=== PATIENT | female | born 1975 | race Caucasian/White ===

== ENCOUNTER 2018-06-09 13:11 | Emergency (ER) | payer MEDICAID, SELFPAY ==
[2018-06-09 13:16] VITALS: BP 120/62; PULSE 70; RESP 14; TEMP 37; O2SAT 99
[2018-06-09] MEDS: Amoxicillin 875/Clav. 125 TAB PO (14:04)
--- NOTE | 2018-06-09 14:21 | ED.GENADUL ---
Disposition Clinical Impression: Suppurative otitis media Disposition: HOME Condition: Stable Instructions: Otitis Media (ED) Additional Instructions: Return immediately for any high fevers, significant worsening of symptoms, or further concerns you may have. Otherwise take your antibiotics as prescribed and follow-up with your primary care provider if not improving over the next week. He may continue to take [id number] pain medication and for your nasal congestion it is recommended that you use [id number] Flonase and Sudafed. Prescriptions: Amoxicillin/Potassium Clav [Augmentin 875-125 Tablet] 1 each PO Q12H #14 tablet Referrals: [facility] [Provider Group] - 1 week (Follow-up with your primary care provider for reassessment in the next week if not improving.) Forms: Work Release Medical Decision Making - Medical Decision Making Patient presenting the emergency department for right ear pain and headache. Physical exam shows findings consistent with supportive otitis media otherwise very mild mastoid tenderness, normal external ear exam, normal oropharynx exam. Patient does have mild lymphadenopathy noted on the right anterior cervical lymph nodes otherwise no meningitis, peritonsillar or retropharyngeal abscess or findings noted. Given this patient was placed upon Augmentin due to stating significant headache and discomfort with this. Patient encouraged to return for new or worsening symptoms otherwise to follow-up with primary care in 1 week if not improving. After discussion of diagnosis and plan of care with patient patient agreed and stated no further needs, questions, or concerns at this time. History of Present Illness - General Chief complaint: EarProblem Stated complaint: EAR ACHE Time Seen by Provider: 06/09/18 13:27 Source: patient, RN notes reviewed Mode of arrival: ambulatory Limitations: no limitations - History of Present Illness Initial comments: Patient reports for the past 3 days she has had feeling of being off, mild headache, and then developing into right ear pain. She states pain is been significant and severe and that she feels some popping and pressure in her middle ear. Patient denies any fever but states that overall she does not feel well. Patient does state that over the past couple weeks she has suffered from a sinus cold with persistent nasal congestion. Onset/Timin -: days(s) Location: right (ear) Severity scale (1-10): 7 Quality: aching, other (Pressure) Consistency: constant Improves with: none Worsens with: none Associated Symptoms: denies other symptoms Treatments Prior to Arrival: NSAID - Related Data Ibuprofen [Ibuprofen Ib] 200 - 600 mg PO PRN PRN 09/24/17 Amoxicillin/Potassium Clav [Augmentin 875-125 Tablet] 1 each PO Q12H #14 tablet 06/09/18 Allergies Allergy/AdvReac Type Severity Reaction Status Date / Time codeine Allergy Unknown high fever Unverified 06/09/18 13:24 Review of Systems Constitutional: denies: chills, fever ENT: ear pain, throat pain, congestion. denies: dental pain Respiratory: denies: cough, shortness of breath Skin: denies: rash Neurological: headache Comment: All other systems reviewed and negative Past Medical History - Past Medical History Medical history: no medical history Surgical history: non-contributory, bilateral tubal ligation - Social History Smoking status: current everyday smoker Alcohol use: none Drug use: none General Exam - General Limitations: no limitations General appearance: alert, in no apparent distress - Head Head exam: Present: atraumatic, normocephalic, normal inspection - Eye Eye exam: Present: normal apperance - ENT ENT exam: Present: normal orophraynx, mucous membranes moist, other. Absent: TM's normal bilaterally (Right TM has purulent fluid seen with some loss of landmarks) - Expanded ENT Exam No standard instances Ear exam: Present: normal external inspection Mouth exam: Present: tongue normal. Absent: drooling, trismus, muffled voice, tongue elevation Throat exam: normal inspection. negative: tonsillar erythema, tonsillomegaly, tonsillar exudate, R peritonsillar mass, L peritonsillar mass - Neck Neck exam: Present: tenderness, full ROM, lymphadenopathy (Right anterior cervical). Absent: meningismus - Respiratory Respiratory exam: Present: normal lung sounds bilaterally. Absent: respiratory distress, wheezes, rales, rhonchi, stridor - Cardiovascular Cardiovascular Exam: Present: regular rate, normal rhythm, normal heart sounds - Neurological Exam Neurological exam: Present: alert, oriented X3, normal gait. Absent: altered - Skin Skin exam: Present: warm, dry, normal color Course Vital Signs - 24 hr 06/09/18 13:16 Temperature 37.0 C Pulse 70 Respiratory 14 Rate Blood Pressure 120/62 Pulse Oximetry 99
--- NOTE | 2018-06-09 14:24 | ED.GENADUL_ITS ---
Disposition Clinical Impression: Suppurative otitis media Disposition: HOME Condition: Stable Instructions: Otitis Media (ED) Additional Instructions: Return immediately for any high fevers, significant worsening of symptoms, or further concerns you may have. Otherwise take your antibiotics as prescribed and follow-up with your primary care provider if not improving over the next week. He may continue to take [id number] pain medication and for your nasal congestion it is recommended that you use [id number] Flonase and Sudafed. Prescriptions: Amoxicillin/Potassium Clav [Augmentin 875-125 Tablet] 1 each PO Q12H #14 tablet Referrals: [facility] [Provider Group] - 1 week (Follow-up with your primary care provider for reassessment in the next week if not improving.) Forms: Work Release Medical Decision Making - Medical Decision Making Patient presenting the emergency department for right ear pain and headache. Physical exam shows findings consistent with supportive otitis media otherwise very mild mastoid tenderness, normal external ear exam, normal oropharynx exam. Patient does have mild lymphadenopathy noted on the right anterior cervical lymph nodes otherwise no meningitis, peritonsillar or retropharyngeal abscess or findings noted. Given this patient was placed upon Augmentin due to stating significant headache and discomfort with this. Patient encouraged to return for new or worsening symptoms otherwise to follow-up with primary care in 1 week if not improving. After discussion of diagnosis and plan of care with patient patient agreed and stated no further needs, questions, or concerns at this time. History of Present Illness - General Chief complaint: EarProblem Stated complaint: EAR ACHE Time Seen by Provider: 06/09/18 13:27 Source: patient, RN notes reviewed Mode of arrival: ambulatory Limitations: no limitations - History of Present Illness Initial comments: Patient reports for the past 3 days she has had feeling of being off, mild headache, and then developing into right ear pain. She states pain is been significant and severe and that she feels some popping and pressure in her middle ear. Patient denies any fever but states that overall she does not feel well. Patient does state that over the past couple weeks she has suffered from a sinus cold with persistent nasal congestion. Onset/Timin -: days(s) Location: right (ear) Severity scale (1-10): 7 Quality: aching, other (Pressure) Consistency: constant Improves with: none Worsens with: none Associated Symptoms: denies other symptoms Treatments Prior to Arrival: NSAID - Related Data Ibuprofen [Ibuprofen Ib] 200 - 600 mg PO PRN PRN 09/24/17 Amoxicillin/Potassium Clav [Augmentin 875-125 Tablet] 1 each PO Q12H #14 tablet 06/09/18 Allergies Allergy/AdvReac Type Severity Reaction Status Date / Time codeine Allergy Unknown high fever Unverified 06/09/18 13:24 Review of Systems Constitutional: denies: chills, fever ENT: ear pain, throat pain, congestion. denies: dental pain Respiratory: denies: cough, shortness of breath Skin: denies: rash Neurological: headache Comment: All other systems reviewed and negative Past Medical History - Past Medical History Medical history: no medical history Surgical history: non-contributory, bilateral tubal ligation - Social History Smoking status: current everyday smoker Alcohol use: none Drug use: none General Exam - General Limitations: no limitations General appearance: alert, in no apparent distress - Head Head exam: Present: atraumatic, normocephalic, normal inspection - Eye Eye exam: Present: normal apperance - ENT ENT exam: Present: normal orophraynx, mucous membranes moist, other. Absent: TM 's normal bilaterally (Right TM has purulent fluid seen with some loss of landmarks) - Expanded ENT Exam No standard instances Ear exam: Present: normal external inspection Mouth exam: Present: tongue normal. Absent: drooling, trismus, muffled voice, tongue elevation Throat exam: normal inspection. negative: tonsillar erythema, tonsillomegaly, tonsillar exudate, R peritonsillar mass, L peritonsillar mass - Neck Neck exam: Present: tenderness, full ROM, lymphadenopathy (Right anterior cervical). Absent: meningismus - Respiratory Respiratory exam: Present: normal lung sounds bilaterally. Absent: respiratory distress, wheezes, rales, rhonchi, stridor - Cardiovascular Cardiovascular Exam: Present: regular rate, normal rhythm, normal heart sounds - Neurological Exam Neurological exam: Present: alert, oriented X3, normal gait. Absent: altered - Skin Skin exam: Present: warm, dry, normal color Course Vital Signs - 24 hr 06/09/18 13:16 Temperature 37.0 C Pulse 70 Respiratory 14 Rate Blood Pressure 120/62 Pulse Oximetry 99
== END 2018-06-09 14:35 | disposition home or self-care (01) ==
PROVIDERS: Emergency Provider Student in an Organized Health Care Education/Training Program; PCP Nurse Practitioner
DX: H66.001 Acute suppurative otitis media without spontaneous rupture of ear drum, right ear (principal); R51 Headache; R59.1 Generalized enlarged lymph nodes
CPT/HCPCS: 99283

== ENCOUNTER 2018-07-06 13:13 | Outpatient (REF) | payer MEDICAID, SELFPAY ==
[2018-07-06 13:58] LABS: Hemoglobin A1C 5.3 % (4.5-6.2)
[2018-07-06 14:02] LABS: Cholesterol 171 mg/dL (50-200); HDL Cholesterol 78 mg/dL (40-60); LDL CHOLESTEROL 87 mg/dL (<100); TSH (W/Ref FT4) 1.33 uIU/mL (0.358-3.74); Triglyceride 35 mg/dL (30-150)
== END 2018-07-06 13:14 ==
LOC: NCHCN 13:13
PROVIDERS: PCP Nurse Practitioner; Visit Provider Nurse Practitioner
DX: Z13.29 Encounter for screening for other suspected endocrine disorder (principal); Z13.1 Encounter for screening for diabetes mellitus; Z13.89 Encounter for screening for other disorder
CPT/HCPCS: 80061; 83721; 83036; 84443

== ENCOUNTER 2019-02-22 10:15 | Outpatient (CLI) | payer OTHER, SELFPAY ==
--- NOTE | 2019-02-22 10:01 | DI.RAD_ITS ---
SYMPTOMS/DIAGNOSIS: RT SHOULDER PAIN RIGHT SHOULDER: Two views were obtained. There is hypertrophic change at the acromioclavicular joint. No other significant bony or soft tissue abnormality seen.
== END 2019-02-22 10:35 ==
PROVIDERS: PCP Nurse Practitioner; Visit Provider Physician Assistant
DX: M25.511 Pain in right shoulder (principal)
CPT/HCPCS: 73030

== ENCOUNTER 2019-04-05 08:47 | Emergency (ER) | payer SELFPAY ==
[2019-04-05 08:49] VITALS: BP 129/70; PULSE 71; RESP 18; TEMP 36.5; O2SAT 100
--- NOTE | 2019-04-05 08:49 | W.ED.GENAD ---
Discharge Plan Disposition Patient Disposition: HOME Discharge Details Chief Complaint: DentalOral Clinical Impression: Dental infection Primary Care Provider: Nicole Robertson ED Provider: Tiesha Tolliver Home Meds and New Rx's Prescriptions: New penicillin V potassium 500 mg tablet 500 mg PO QID Qty: 28 RF: 0 Continued ibuprofen 800 mg tablet 800 mg PO TID RF: 0 acetaminophen [Tylenol Extra Strength] 500 mg tablet 1,000 mg PO Q6H PRNRF: 0 Discharge Instructions Instructions: Dental Abscess (ED) Additional Instructions: Encourage hydration. Tylenol and ibuprofen as needed for discomfort. You may use Orajel to help with localized discomfort. Please take penicillin as prescribed. Even if symptoms improve, please take the entire course. You will need definitive care with a dentist, without this ear infection will recur. Please contact local dentist to set up follow-up appointment, list of local dentist is attached. If you develop increased swelling, fever/chills or other new/worsening symptoms please seek care urgently once again. Referrals: Nicole Robertson [Primary Care Provider] - Medical Decision Making Patient is a 43-year-old female presents today with chief complaint of right upper dental pain. She reports that she first noticed this yesterday. Has a fractured tooth in this area, unclear as to when she fractured this. Patient has pain along the buccal and lingual side of his tooth with no signs of infection. Patient has pain radiating up into the right maxillary sinus. Patient appears nontoxic, vital signs within normal limits. No lymphadenopathy. Concern for infection secondary to this broken tooth. Patient will be placed on penicillin. Advised Tylenol and/or ibuprofen as needed for discomfort. Advised she may try topical options to help with pain. Advised will need definitive care with a dentist, list of local dental care providers was given. We discussed new/worsening symptoms when to seek care urgently once again. All the questions and concerns were addressed and she is in agreement this plan. HPI General Mode of arrival: ambulatory. Date/Time Provider Initiated Documentation: 04/05/19 08:48. Limitations to Documentation: no limitations. Information obtained by: patient and RN notes reviewed. History of Present Illness 43 year old F presents to the emergency department with the chief complaint of right upper dental pain, described as severe, with intensity rated at 9. Quality is described as burning, and is localized to the face and mouth. Patient reports no radiation. Patient started experiencing this day(s) (1) and it has been constant. No relieving factors improve symptom(s), Eating worsens symptoms . Patient notes no other symptoms.; denies fever/chills, headaches, loss of appetite, nausea/vomiting, rash and shortness of breath. Patient did receive the following treatments prior to arrival, NSAID Related Data Home Medications Medication Instructions Recorded Confirmed acetaminophen 500 mg tablet 1,000 mg PO Q6H PRN tab 02/22/19 04/05/19 ibuprofen 800 mg tablet 800 mg PO TID 02/22/19 04/05/19 penicillin V potassium 500 mg PO QID #28 tab 04/05/19 Previous Rx's Medication Instructions Recorded penicillin V potassium 500 mg PO QID #28 tab 04/05/19 Allergies Allergy/AdvReac Type Severity Reaction Status Date / Time codeine Allergy Unknown high fever Unverified 03/22/19 10:11 Review of Systems Constitutional Reports as per HPI, Denies chills, Denies fatigue, Denies fever(s), Denies headache(s) and Denies poor appetite Eyes Denies change in vision and Denies irritation ENT Reports as per HPI, Reports dental pain, Denies dysphagia, Denies dizziness, Denies dry mouth, Denies ear discharge, Denies otalgia, Reports facial pain, Denies headache(s), Denies hoarseness, Denies lip swelling, Denies nasal congestion, Denies odynophagia and Denies sore throat Cardiovascular Reports as per HPI and Denies chest pain Respiratory Reports as per HPI and Denies cough Gastrointestinal Reports as per HPI, Denies dysphagia, Denies nausea, Denies odynophagia and Denies vomiting Integumentary/Breasts Reports as per HPI, Denies erythema, Denies rash and Denies skin pain Neurologic Reports as per HPI, Denies dizziness and Denies headache(s) Endocrine Denies fatigue Allergic/Immunologic Denies lip swelling [facility] Medical History Back pain (Acute) Knee cartilage, torn, right (Acute) Surgical History Hx of elbow surgery (Acute) Social History (Reviewed 04/05/19 @ 09:09 by NOLAN Bar Smoking/Tobacco Use Status: Current every day Tobacco: How many years used: 30 Quit status: has quit before Drug use: Never Household members: spouse and family Housing: apartment Number of Children: 6 Education Level: high school current occupation: [employer] Seatbelt use: always Do you feel safe in your relationship?: Yes Exam Const General: cooperative, healthy appearing, comfortable, no acute distress, well developed and well groomed Nutritional Appearance: average body habitus and well nourished Orientation: alert and awake [facility] Head: normal to inspection, normocephalic and atraumatic Ears: hearing grossly normal bilaterally, external ears normal and TM's normal bilaterally General nose exam: external nose normal and nares normal Face and sinus: normal facial exam, sinuses nontender and face symmetric Mouth: oral mucosae normal, lip normal, tongue normal, moist mucous membranes abnormal (patient appears dry), no muffled voice, no trismus and No restricted motion Teeth and gingiva: poor dentition (fractured #4 tooth, swelling along buccal and lingual side) and other (no findings to suggest abscess) Throat: posterior oropharynx normal, tonsils normal and uvula midline Eyes General: appearance normal, both eyes and all related structures Neck Neck: normal visual inspection, full ROM, no lymphadenopathy, supple and no anterior neck swelling Resp Effort & Inspection: normal respiratory effort, able to speak in complete sentences and no respiratory distress Auscultation: clear to auscultation bilaterally, no rales, no rhonchi and no wheezes Cardio Rate: regular rate Rhythm: regular rhythm Heart Sounds: S1 normal and S2 normal Skin General skin exam: no rashes or lesions noted Trauma: no lacerations or abrasions Neuro General: alert and awake Cognition: normal cognition Speech: speech normal Gait: normal gait Psych Appearance: grossly normal and well kempt Mental Status: mental status grossly normal Speech and Movement: speech and movement normal
--- NOTE | 2019-04-05 09:12 | ED.GENADUL_ITS ---
Discharge Plan Disposition Patient Disposition: HOME Discharge Details Chief Complaint: DentalOral Clinical Impression: Dental infection Primary Care Provider: Nicole Robertson ED Provider: Tiesha Tolliver Home Meds and New Rx's Prescriptions: New penicillin V potassium 500 mg tablet 500 mg PO QID Qty: 28 RF: 0 Continued ibuprofen 800 mg tablet 800 mg PO TID RF: 0 acetaminophen [Tylenol Extra Strength] 500 mg tablet 1,000 mg PO Q6H PRNRF: 0 Discharge Instructions Instructions: Dental Abscess (ED) Additional Instructions: Encourage hydration. Tylenol and ibuprofen as needed for discomfort. You may use Orajel to help with localized discomfort. Please take penicillin as pres cribed. Even if symptoms improve, please take the entire course. You will need definitive care with a dentist, without this ear infection will recur. Please contact local dentist to set up follow-up appointment, list of local dentist is attached. If you develop increased swelling, fever/chills or other new/worsening symptoms please seek care urgently once again. Referrals: Nicole Robertson [Primary Care Provider] - Medical Decision Making Patient is a 43-year-old female presents today with chief complaint of right upper dental pain. She reports that she first noticed this yesterday. Has a fractured tooth in this area, unclear as to when she fractured this. Patient has pain along the buccal and lingual side of his tooth with no signs of infection. Patient has pain radiating up into the right maxillary sinus. Patient appears nontoxic, vital signs within normal limits. No lymphadenopathy. Concern for infection secondary to this broken tooth. Patient will be placed on penicillin. Advised Tylenol and/or ibuprofen as needed for discomfort. Advised she may try topical options to help with pain. Advised will need definitive care with a dentist, list of local dental care providers was given. We discussed new/worsening symptoms when to seek care urgently once again. All the questions and concerns were addressed and she is in agreement this plan. HPI General Mode of arrival: ambulatory . Date/Time Provider Initiated Documentation: 04/05/19 08:48 . Limitations to Documentation: no limitations . Information obtained by: patient and RN notes reviewed . History of Present Illness 43 year old F presents to the emergency department with the chief complaint of right upper dental pain, described as severe, with intensity rated at 9. Quality is described as burning, and is localized to the face and mouth. Patient reports no radiation. Patient started experiencing this day(s) (1) and it has been constant. No relieving factors improve symptom(s), Eating worsens symptoms . Patient notes no other symptoms.; denies fever/chills, headaches, loss of appetite, nausea/vomiting, rash and shortness of breath. Patient did receive the following treatments prior to arrival, NSAID Related Data Home Medications Medication Instructions Recorded Confirmed acetaminophen 500 mg tablet 1,000 mg PO Q6H PRN tab 02/22/19 04/05/19 ibuprofen 800 mg tablet 800 mg PO TID 02/22/19 04/05/19 penicillin V potassium 500 mg PO QID #28 tab 04/05/19 Previous Rx's Medication Instructions Recorded penicillin V potassium 500 mg PO QID #28 tab 04/05/19 Allergies Allergy/AdvReac Type Severity Reaction Status Date / Time codeine Allergy Unknown high fever Unverified 03/22/19 10:11 Review of Systems Constitutional Reports as per HPI, Denies chills, Denies fatigue, Denies fever(s), Denies headache(s) and Denies poor appetite Eyes Denies change in vision and Denies irritation ENT Reports as per HPI, Reports dental pain, Denies dysphagia, Denies dizziness, Denies dry mouth, Denies ear discharge, Denies otalgia, Reports facial pain, Denies headache(s), Denies hoarseness, Denies lip swelling, Denies nasal congestion, Denies odynophagia and Denies sore throat Cardiovascular Reports as per HPI and Denies chest pain Respiratory Reports as per HPI and Denies cough Gastrointestinal Reports as per HPI, Denies dysphagia, Denies nausea, Denies odynophagia and Denies vomiting Integumentary/Breasts Reports as per HPI, Denies erythema, Denies rash and Denies skin pain Neurologic Reports as per HPI, Denies dizziness and Denies headache(s) Endocrine Denies fatigue Allergic/Immunologic Denies lip swelling [facility] Medical History Back pain (Acute) Knee cartilage, torn, right (Acute) Surgical History Hx of elbow surgery (Acute) Social History Smoking/Tobacco Use Status: Current every day Tobacco: How many years used: 30 Quit status: has quit before Drug use: Never Household members: spouse and family Housing: apartment Number of Children: 6 Education Level: high school current occupation: [employer] Seatbelt use: always Do you feel safe in your relationship?: Yes Exam Const General: cooperative, healthy appearing, comfortable, no acute distress, well developed and well groomed Nutritional Appearance: average body habitus and well nourished Orientation: alert and awake [facility] Head: normal to inspection, normocephalic and atraumatic Ears: hearing grossly normal bilaterally, external ears normal and TM's normal bilaterally General nose exam: external nose normal and nares normal Face and sinus: normal facial exam, sinuses nontender and face symmetric Mouth: oral mucosae normal, lip normal, tongue normal, moist mucous membranes abnormal (patient appears dry), no muffled voice, no trismus and No restricted motion Teeth and gingiva: poor dentition (fractured #4 tooth, swelling along buccal and lingual side) and other (no findings to suggest abscess) Throat: posterior oropharynx normal, tonsils normal and uvula midline Eyes General: appearance normal, both eyes and all related structures Neck Neck: normal visual inspection, full ROM, no lymphadenopathy, supple and no anterior neck swelling Resp Effort & Inspection: normal respiratory effort, able to speak in complete sentences and no respiratory distress Auscultation: clear to auscultation bilaterally, no rales, no rhonchi and no wheezes Cardio Rate: regular rate Rhythm: regular rhythm Heart Sounds: S1 normal and S2 normal Skin General skin exam: no rashes or lesions noted Trauma: no lacerations or abrasions Neuro General: alert and awake Cognition: normal cognition Speech: speech normal Gait: normal gait Psych Appearance: grossly normal and well kempt Mental Status: mental status grossly normal Speech and Movement: speech and movement normal
[2019-04-05 09:36] VITALS: BP 129/70; PULSE 71; RESP 18; TEMP 36.5; O2SAT 100
== END 2019-04-05 09:44 | disposition home or self-care (01) ==
PROVIDERS: Emergency Provider Physician Assistant; PCP Nurse Practitioner
DX: K04.7 Periapical abscess without sinus (principal); K08.89 Other specified disorders of teeth and supporting structures
CPT/HCPCS: 64400; 99283

== ENCOUNTER 2019-04-05 20:55 | Emergency (ER) | payer SELFPAY ==
[2019-04-05 20:58] VITALS: BP 132/72; PULSE 110; RESP 18; TEMP 37.2; O2SAT 100
--- NOTE | 2019-04-05 21:09 | W.ED.GENAD ---
Discharge Plan Disposition Patient Disposition: HOME Condition: Good Discharge Details Chief Complaint: DentalOral Clinical Impression: Dental abscess Primary Care Provider: Nicole Robertson ED Provider: Curt Felipe Home Meds and New Rx's Prescriptions: New hydrocodone-acetaminophen [[place]] 5-325 mg tablet 1 tab PO Q6H Qty: 6 RF: 0 No Action ibuprofen 800 mg tablet 800 mg PO TID RF: 0 acetaminophen [Tylenol Extra Strength] 500 mg tablet 1,000 mg PO Q6H PRNRF: 0 penicillin V potassium 500 mg tablet 500 mg PO QID Qty: 28 RF: 0 Discharge Instructions Instructions: Dental Abscess (ED) Additional Instructions: Please continue to take your penicillin as directed, as well as 800 mg of ibuprofen 3-4 times per day. You can continue to take the Tylenol 1000 mg every 6 hours, however if you are taking a [place], only take 500 mg of the Tylenol as the [place] has some Tylenol in it. Please follow-up here in the next 24 to 48 hours for reassessment to make sure your swelling has improved. If you notice any worsening of your symptoms, or any new symptoms such as vomiting, diarrhea, fever, chills, shortness of breath, chest pain, numbness, weakness, or fainting , please return immediately to the emergency department for reevaluation. Please follow up with your primary care provider as soon as possible for reassessment and reevaluation. As always, it was a pleasure participating in your medical care today. Referrals: Nicole Robertson [Primary Care Provider] - Medical Decision Making This is a pleasant 43-year-old female with a history of dental caries, who presents today for right upper dental pain. Earlier this morning she was seen and assessed, she was given a dental block, and penicillin. She has been taking this as directed. Unfortunately the pain has continued, and she also demonstrates some new minimal swelling in the right upper dental region. Bedside ultrasound confirms a small amount of fluid in the periapical space. I suspect this is causing mild swelling. No evidence of fever, or hypotension. We will hold off on doing a second dental block at this time, we will I&D the area and reassess. 9:44 PM The patient's right upper gum was incised and drained with an 18-gauge needle, a large amount of purulent material was removed. Notable decrease in the swelling after this. Patient tolerated the procedure well. At this time since she is only had one day of penicillin, will recommend that she continue the penicillin, we will give a few [place]'s for pain control at home. I have asked that the patient come back in the next 24 to 48 hours for reassessment to note improvement of the swelling and symptoms. Clinically the patient looks well at this time, I feel she can be safely discharged home with close follow-up. I have extensively reviewed the treatment plan and discharge instructions with the patient. I have addressed all patient concerns at this time. The patient was made aware of what symptoms to monitor for that would warrant a return to the emergency department. Discussed the plan with the patient, they demonstrate verbal understanding and agreement with our assessment and plan at this time. HPI General Date/Time Provider Initiated Documentation: 04/05/19 20:55. HPI Narrative: This is a pleasant 43-year-old female with a past medical history of dental caries who presents today for evaluation of dental pain. She was here earlier this morning, she was given penicillin and a dental block was performed. She had notable improvement of her symptoms at that time. She returns today for continuation and slight worsening of the pain, in addition to some mild swelling in the upper right lip. She denies any fever or chills. She denies any headache or vision changes. She denies any discharge. She has no other complaints or modifying factors at this time. She states that she has been taking the antibiotic as directed, in addition to Tylenol and Motrin. Related Data Home Medications Medication Instructions Recorded Confirmed acetaminophen 500 mg tablet 1,000 mg PO Q6H PRN tab 02/22/19 04/05/19 ibuprofen 800 mg tablet 800 mg PO TID 02/22/19 04/05/19 hydrocodone-acetaminophen [[place]] 1 tab PO Q6H #6 tab 04/05/19 penicillin V potassium 500 mg PO QID #28 tab 04/05/19 04/05/19 Previous Rx's Medication Instructions Recorded hydrocodone-acetaminophen [[place]] 1 tab PO Q6H #6 tab 04/05/19 penicillin V potassium 500 mg PO QID #28 tab 04/05/19 Allergies Allergy/AdvReac Type Severity Reaction Status Date / Time codeine Allergy Unknown high fever Unverified 04/05/19 21:01 General Stated Complaint: DentalOral REECE: 3 Review of Systems Review of Systems All systems reviewed & are unremarkable except as noted in HPI and below PFSH Social History Smoking/Tobacco Use Status: Current every day Tobacco: How many years used: 30 Quit status: has quit before Alcohol Intake: never Drug use: Never Household members: spouse and family Housing: apartment Number of Children: 6 Education Level: high school 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 3.ENT: Atraumatic external nose and ears. Moist MM. Neck: Symmetric, trachea midline, No thyromegaly. Oropharynx is clear, no evidence of airway compromise. Right side of the patient's right upper maxillary region does demonstrate minimal swelling, bedside ultrasound demonstrates a small collection of fluid in the periapical's space. Mild amount of fluctuance is also noted when palpating from the intraoral region. Patient demonstrates good movement of cervical neck. There is no nuchal rigidity, no nuchal tenderness. Patient is able to flex the neck without any difficulty or significant pain. Negative Kernig's and Brudzinski sign. 4.CVS: +S1/S2, No murmurs or gallops. Peripheral pulses 2+ and equal in all extremities. Brisk capillary refill in all extremities. 5.RESP: Unlabored respiratory effort. Clear to auscultation bilaterally. No wheezes rales or rhonchi 6.GI: Soft, Nontender/Nondistended, No hepatosplenomegaly. No guarding or rebound. 7.MSK: Normocephalic/Atraumatic, Extremities w/o deformity or ttp No cyanosis or clubbing, Normal movement of all extremities 8.Skin: Warm, Dry. No rashes or lesions. 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 Sensation grossly intact, no focal neurologic deficits. 10.Psych: (AAO) x3. Appropriate mood and affect Course Vital Signs Temperature 37.2 C 04/05/19 20:58 Pulse 110 H 04/05/19 20:58 Respiratory Rate 18 04/05/19 20:58 Blood Pressure 132/72 04/05/19 20:58 Pulse Oximetry 100 04/05/19 20:58 Temperature 37.2 C 04/05/19 20:58 Temperature Source Skin 04/05/19 20:58 Pulse 110 H 04/05/19 20:58 Respiratory Rate 18 04/05/19 20:58 Respiratory Effort Non-Labored 04/05/19 21:01 Blood Pressure 132/72 04/05/19 20:58 Blood Pressure Position Sitting 04/05/19 20:58 Pulse Oximetry 100 04/05/19 20:58 Oxygen Delivery Method Room Air 04/05/19 20:58 Oxygen Flow Rate 0 04/05/19 20:58 Pain Level 8 04/05/19 20:58
[2019-04-05] MEDS: HYDROcodone 5/Acetaminophen 325 TAB PO (21:55)
[2019-04-05 21:58] VITALS: BP 128/78; PULSE 105; RESP 18; TEMP 37.2; O2SAT 97
== END 2019-04-05 21:59 | disposition home or self-care (01) ==
LOC: ER 21:58
PROVIDERS: Emergency Provider Student in an Organized Health Care Education/Training Program; PCP Nurse Practitioner
DX: K04.7 Periapical abscess without sinus (principal)
CPT/HCPCS: 10160

== ENCOUNTER 2019-04-06 05:27 | Emergency (ER) | payer SELFPAY ==
[2019-04-06 05:30] VITALS: BP 129/63; PULSE 76; RESP 16; TEMP 36.7; O2SAT 100
--- NOTE | 2019-04-06 05:46 | ED.GENADUL_ITS ---
Discharge Plan Disposition Patient Disposition: HOME Condition: Good Discharge Details Chief Complaint: DentalOral Clinical Impression: Abscess, dental Primary Care Provider: Nicole Robertson ED Provider: Rambo Burnette Meds and New Rx's Prescriptions: New clindamycin HCl 150 mg capsule 300 mg PO Q6H Qty: 56 RF: 0 Continued ibuprofen 800 mg tablet 800 mg PO TID RF: 0 acetaminophen [Tylenol Extra Strength] 500 mg tablet 1,000 mg PO Q6H PRNRF: 0 hydrocodone-acetaminophen [[place]] 5-325 mg tablet 1 tab PO Q6H Qty: 6 RF: 0 Discontinued penicillin V potassium 500 mg tablet 500 mg PO QID Qty: 28 RF: 0 Discharge Instructions Instructions: Dental Abscess (ED) Additional Instructions: Discontinue penicillin and start clindamycin. You received your first dose this morning. Next dose will be due around noon. Continue pain medication as previously prescribed. Follow-up with dentist at next available appointment. Return to the ED if you continue to have increased facial pain swelling, erythema, fever, difficulty breathing, inability to swallow. Medical Decision Making Patient appears to have more pus present in the area previously I&D last night. She reports she tried to get it to drain on her own but could not. Discussed repeat needle aspiration which she agreed to. Hurricaine gel applied to area. 18-gauge needle inserted and 1 mL of pus drained. Patient had immediate relief of pain and pressure in the area. Will discontinue the penicillin at this point. We will start her on clindamycin and gave her first dose here. Return to ED for further worsening symptoms. Otherwise follow-up with dentist as soon as possible. Medical Records Medical records reviewed: Yes I reviewed the patient's medical records. HPI General Mode of arrival: ambulatory . Date/Time Provider Initiated Documentation: 04/06/19 05:34 . Limitations to Documentation: no limitations . Information obtained by: patient . HPI Narrative: Patient returns to ED with increased facial swelling. She was seen here twice yesterday, including the last visit about 8 hours ago. She is on penicillin for dental infection. She had incision and drainage last night. She woke up this morning and had more facial swelling than previous. She continues to have discomfort and pressure. She had no fever. She has no difficulty breathing or swallowing. Presents this morning because of increased facial swelling. Related Data Home Medications Medication Instructions Recorded Confirmed acetaminophen 500 mg tablet 1,000 mg PO Q6H PRN tab 02/22/19 04/06/19 ibuprofen 800 mg tablet 800 mg PO TID 02/22/19 04/06/19 hydrocodone-acetaminophen [[place]] 1 tab PO Q6H #6 tab 04/05/19 04/06/19 clindamycin HCl 300 mg PO Q6H #56 cap 04/06/19 Previous Rx's Medication Instructions Recorded hydrocodone-acetaminophen [[place]] 1 tab PO Q6H #6 tab 04/05/19 clindamycin HCl 300 mg PO Q6H #56 cap 04/06/19 Allergies Allergy/AdvReac Type Severity Reaction Status Date / Time codeine Allergy Unknown high fever Unverified 04/05/19 21:01 General Stated Complaint: DentalOral REECE: 3 Review of Systems Constitutional Denies fever(s) Eyes Denies change in vision and Denies eye pain ENT Reports dental pain, Denies lip swelling, Denies throat swelling and Denies tongue swelling Allergic/Immunologic Denies lip swelling, Denies throat swelling and Denies tongue swelling PFSH Medical History Back pain (Acute) Knee cartilage, torn, right (Acute) Surgical History Hx of elbow surgery (Acute) Social History Smoking/Tobacco Use Status: Current every day Tobacco Type: cigarettes Tobacco: How many years used: 30 Quit status: has quit before Alcohol Intake: never Drug use: Never Household members: spouse and family Housing: apartment Number of Children: 6 Education Level: high school 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 Const: WDWN female in NAD. HEENT: NC/AT. Right side facial swelling involving the buccal area and now up into the lower periorbital area. Lips are normal. Tongue is normal. Right upper premolar is fractured off. She has swelling in the gingival area around this tooth. She has palpable fluctuance between the gingiva and buccal area around this tooth. Eyes: Normal conjunctiva and sclera. PERRL and EOMI Neck: Supple. Trachea midline. No anterior neck swelling. No significant adenopathy. Lungs: Normal respiratory effort. Neuro: A+O x 3. CN II - XII in tact. Good strength and no focal deficit. Skin: No erythema. Course Vital Signs Temperature 98.1 F 04/06/19 05:30 Pulse 76 04/06/19 05:30 Respiratory Rate 16 04/06/19 05:30 Blood Pressure 129/63 04/06/19 05:30 Pulse Oximetry 100 04/06/19 05:30 Temperature 98.1 F 04/06/19 05:30 Temperature Source Tympanic 04/06/19 05:30 Pulse 76 04/06/19 05:30 Respiratory Rate 16 04/06/19 05:30 Respiratory Effort 04/06/19 05:34 Blood Pressure 129/63 04/06/19 05:30 Blood Pressure Position Sitting 04/06/19 05:30 Pulse Oximetry 100 04/06/19 05:30 Pain Level 4 04/06/19 05:34 Comment 04/06/19 05:30 Procedures Abscess I/D Site: Other (dental) Side (if applicable): Right Local Anesthetic: Other Anesthetic (benzocaine gel) Technique: Needle Aspiration Amount of fluid expressed (mL): 1 Irrigation: No Packing used?: None
[2019-04-06] MEDS: Clindamycin 150 MG CAP 600 MG PO (05:47)
[2019-04-06] MEDS: Benzocaine 20% Gel 30 GM JAR MM (05:47)
[2019-04-06 06:16] VITALS: BP 129/63; PULSE 76; RESP 16; O2SAT 100
== END 2019-04-06 06:15 | disposition home or self-care (01) ==
PROVIDERS: Emergency Provider Emergency Medicine; PCP Nurse Practitioner
DX: K04.7 Periapical abscess without sinus (principal); F17.210 Nicotine dependence, cigarettes, uncomplicated
CPT/HCPCS: 99283

== ENCOUNTER 2019-04-06 11:08 | Emergency (ER) | payer SELFPAY ==
[2019-04-06 11:10] VITALS: BP 124/64; PULSE 72; RESP 14; TEMP 37; O2SAT 98
--- NOTE | 2019-04-06 11:14 | W.ED.GENAD ---
Discharge Plan Disposition Patient Disposition: HOME Condition: Stable Discharge Details Chief Complaint: DentalOral Clinical Impression: Dental infection, Right facial swelling Primary Care Provider: Nicole Robertson ED Provider: Jayla Harper Home Meds and New Rx's Prescriptions: Continued ibuprofen 800 mg tablet 800 mg PO TID RF: 0 acetaminophen [Tylenol Extra Strength] 500 mg tablet 1,000 mg PO Q6H PRNRF: 0 hydrocodone-acetaminophen [[place]] 5-325 mg tablet 1 tab PO Q6H Qty: 6 RF: 0 clindamycin HCl 150 mg capsule 300 mg PO Q6H Qty: 56 RF: 0 Discharge Instructions Instructions: Dental Abscess (ED) Additional Instructions: Take the antibiotics until finished. Take your prescribed pain medication as directed. Follow-up with your scheduled appointment with your dentist this afternoon. Return immediately to the emergency department any worsening or new concerning symptoms such as difficulty swallowing, difficulty breathing, persistent fevers or any other concerns. Discharge Data Discharge Date/Time-TO BE ENTERED AT DEPARTURE: 04/06/19 13:27 Discharge Physician: Jayla Harper Medical Decision Making 43yo F w/ a c/o dental pain and right facial swelling for the past 2 days. She was seen here twice yesterday, once for a dental block and once for an I&D as well as this morning for a second I&D. Please see previous providers notes for further information. Apparently she had a large amount of pus drained this morning. She is here today with increase in right-sided facial swelling since this morning. Vitals within normal limits. Patient appears nontoxic. No signs of airway compromise. No submandibular swelling or evidence of Bryan's angina. She appears to have a small area of edema with ecchymosis above right anterior tooth, multiple teeth missing, unsure which number. This does not appear to be an obvious abscess and there is surrounding ecchymosis with previous injections. She has moderate amount of right-sided facial swelling and erythema. Due to worsening symptoms, will obtain labs and CT imaging to rule out extension of abscess. Suspect that her facial swelling is most likely reactive to her dental infection and/or repeated injections. 1300 --labs and imaging reviewed. White blood cell count 12. Hemoglobin 8, was 8.2 two years ago, she has a history of iron deficiency anemia. Potassium 3.2, will replete. CT notes inflammation and thickening in the right maxillary sinus but no abscess or fluid levels. Results discussed with patient. Her right facial erythema and swelling appears mildly improved. Discussed with patient that as she is only taken 1 dose of clindamycin today, it can take up to 48 hours of antibiotics to start to see some improvement. Discussed with patient that as she had large amount of pus drained from abscess this morning, as well as an I&D last night, and there is no obvious abscess noted today, do not see an indication for repeat I&D. Patient has a prescription for pain medication which she has not filled yet. She is instructed to follow-up with her scheduled appointment with her dentist today for reevaluation. She is instructed to return here if she has any acute worsening or new concerning symptoms such as fever, difficulty swallowing or breathing. She was also instructed to follow-up with her primary care doctor for her chronic anemia as she would likely benefit from starting iron. Medical Records Medical records reviewed: Yes I reviewed the patient's medical records. Imaging Data Radiologic Study: Radiologist's impression: CT SCAN OF THE FACE: Post contrast CT scan of the face was performed. The frontal sinuses are clear. There is minimal mucosal thickening in the right ethmoid air cells. There is moderate mucosal thickening in the right maxillary sinus. No fluid levels are seen in the sinuses. The mastoid air cells are well pneumatized. The orbits and retro-orbital soft tissues are unremarkable. There is inflammatory stranding seen in the right periorbital region and overlying the right maxilla and mandible. No drainable fluid collection is appreciated. The bones show no findings to suggest acute osteomyelitis. Mildly enlarged reactive lymph nodes are seen in the submandibular region. IMPRESSION: 1. Inflammatory stranding overlying the right face. This likely reflects cellulitis. No evidence of a drainable abscess is seen. 2. Mild right paranasal sinusitis. Lab Data Lab results reviewed: Yes I reviewed the patient's lab results. Laboratory Tests Range/Units 04/06/19 04/06/19 11:40 11:40 WBC (4.4-10.8) k/cumm 12.61 H RBC (4.00-5.20) m/cumm 3.91 L Hgb (12.0-15.5) g/dL 8.0 L Hct (36.0-46.0) % 27.6 L MCV (80-95) fL 70.6 L MCH (27.0-33.0) pg 20.5 L MCHC (32.0-36.0) g/dL 29.0 L RDW (11.7-14.6) % 17.7 H Plt Count (130-400) x1000/uL 344 MPV (8.0-11.0) fL 9.0 Immature Gran % 0.2 Neutrophils % 73.8 Lymphocytes % 13.4 Monocytes % 10.8 Eosinophils % 1.6 Basophils % 0.2 Absolute Neutrophils (1.2-6.7) k/cumm 9.31 H Absolute Lymphocytes (1.2-3.4) k/cumm 1.69 Absolute Monocytes (0.11-0.7) k/cumm 1.36 H Absolute Eosinophils (0.0-0.7) k/cumm 0.20 Absolute Basophils (0.0-0.2) k/cumm 0.03 Differential Comment Rbc morph reviewed RBC Morphology See below Polychromasia Present Hypochromasia 2+ Poikilocytosis 1+ Anisocytosis 2+ Microcytosis 2+ Sodium (136-145) mmol/L 138 Potassium (3.5-5.1) mmol/L 3.2 L Chloride (98-107) mmol/L 103 Carbon Dioxide (21.0-32.0) mmol/L 26.4 Anion Gap (3-11) mmol/L 8.6 BUN (7-18) mg/dL 9 Creatinine (0.55-1.02) mg/dL 0.66 Estimated GFR/1.73 m2 (mL/min/1.73m2) >= 60.00 Glucose (70-100) mg/dL 91 Calcium (8.5-10.1) mg/dL 9.0 HPI General Mode of arrival: ambulatory. Date/Time Provider Initiated Documentation: 04/06/19 11:10. Limitations to Documentation: no limitations. Information obtained by: patient. HPI Narrative: Patient is a 43-year-old female who presents with right-sided facial swelling and right upper dental pain for the past 2 days, now here with increase in facial swelling and pain. Patient was seen here yesterday twice and once this morning for this complaint. She states yesterday morning she had a dental block, and then last night she had an I&D. She states she returned this morning with continued swelling and had another I&D in the ED. She states she returns now due to increasing facial swelling now spreading up to the area under her eye. She states she has a dentist appointment this afternoon. She was prescribed penicillin yesterday which she took 3 doses and states she was switched to clindamycin this morning of which she has taken 1 dose. She denies any known fever, difficulty swallowing, difficulty breathing. Related Data Home Medications Medication Instructions Recorded Confirmed acetaminophen 500 mg tablet 1,000 mg PO Q6H PRN tab 02/22/19 04/06/19 ibuprofen 800 mg tablet 800 mg PO TID 02/22/19 04/06/19 hydrocodone-acetaminophen [[place]] 1 tab PO Q6H #6 tab 04/05/19 04/06/19 clindamycin HCl 300 mg PO Q6H #56 cap 04/06/19 04/06/19 Previous Rx's Medication Instructions Recorded hydrocodone-acetaminophen [[place]] 1 tab PO Q6H #6 tab 04/05/19 clindamycin HCl 300 mg PO Q6H #56 cap 04/06/19 Allergies Allergy/AdvReac Type Severity Reaction Status Date / Time codeine Allergy Unknown high fever Unverified 04/06/19 11:15 General REECE: 3 Review of Systems Review of Systems All systems reviewed & are unremarkable except as noted in HPI and below Constitutional Reports as per HPI, Denies chills and Denies fever(s) Eyes Denies blurry vision ENT Denies dizziness, Reports facial pain, Denies sore throat, Denies throat swelling and Reports other (R facial swelling) Cardiovascular Denies chest pain and Denies dyspnea Respiratory Denies cough and Denies dyspnea Gastrointestinal Denies abdominal pain, Denies diarrhea and Denies vomiting Genitourinary Denies hematuria and Denies dysuria Musculoskeletal Denies back pain and Denies numbness Integumentary/Breasts Denies lesions and Denies rash Neurologic Denies dizziness, Denies focal weakness and Denies numbness Allergic/Immunologic Denies throat swelling [facility] Medical History Back pain (Acute) Knee cartilage, torn, right (Acute) Surgical History History of bilateral tubal ligation (Acute) History of knee surgery (Acute) H/O section (Chronic) Hx of elbow surgery (Acute) Social History Smoking/Tobacco Use Status: Current every day Tobacco Type: cigarettes Tobacco: How many years used: 30 Quit status: has quit before Alcohol Intake: never Drug use: Never Household members: spouse and family Housing: apartment Number of Children: 6 Education Level: high school current occupation: [employer] 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 Exam Const General: cooperative and healthy appearing Orientation: alert and awake HENMT Head: normal to inspection Ears: hearing grossly normal bilaterally, external ears normal and TM's normal bilaterally General nose exam: external nose normal Face images: 1. Right-sided facial edema and erythema extending from right infraorbital region down to right mandible. No induration or fluctuance. Mouth: oral mucosae normal Teeth and gingiva: dentition normal, poor dentition and other (Multiple missing teeth throughout.) Teeth image: 1. An approximate 1 cm x 4 mm area of fluctuance with superior ecchymosis consistent with previous injections. Throat: posterior oropharynx normal Eyes General: appearance normal, both eyes and all related structures Eyelids: eyelids normal Pupils: PERRL EOM: EOM intact bilaterally Neck Neck: normal visual inspection, trachea midline, supple, no anterior neck swelling and No submandibular swelling Lymphatic: no lymphadenopathy noted Chest Chest: normal inspection of the chest Resp Effort & Inspection: normal respiratory effort and able to speak in complete sentences Auscultation: clear to auscultation bilaterally Cardio Rate: regular rate Rhythm: regular rhythm GI Inspection: normal to inspection Skin General skin exam: no rashes or lesions noted Neuro General: alert and awake Cognition: normal cognition Speech: speech normal Gait: normal gait Motor: muscle tone normal throughout Extrem General: normal to inspection and full ROM Psych Appearance: grossly normal Mental Status: mental status grossly normal Speech and Movement: speech and movement normal Affect: normal affect Thought Process: normal
[2019-04-06] MEDS: Normal Saline 1,000 ML 1000 ML IV (11:40)
[2019-04-06] MEDS: Normal Saline Flush 10 ML SYR IVP (11:40)
[2019-04-06 11:50] LABS: Abs Immature Grans 0.03 k/cumm (0.0-0.09); Absolute Basophil Count 0.03 k/cumm (0.0-0.2); Absolute Lymphocyte Count 1.69 k/cumm (1.2-3.4); Absolute Monocyte Count 1.36 k/cumm (0.11-0.7); Basophils % 0.2; Eosinophils % 1.6; HCT 27.6 % (36.0-46.0); Immature Grans % 0.2; Lymphocytes % 13.4; Mean Corpuscular Hemoglobin 20.5 pg (27.0-33.0); Mean Corpuscular Volume 70.6 fL (80-95); Monocytes % 10.8; Platelet Count 344 x1000/uL (130-400); RBC 3.91 m/cumm (4.00-5.20); RBC Distribution Width 17.7 % (11.7-14.6); White Blood Cell Count 12.61 k/cumm (4.4-10.8)
[2019-04-06 11:54] LABS: Absolute Neutrophil Count 9.31 k/cumm (1.2-6.7)
[2019-04-06 12:10] LABS: Anion Gap 8.6 mmol/L (3-11); BUN 9 mg/dL (7-18); CO2 26.4 mmol/L (21.0-32.0); CREATININE 0.66 mg/dL (0.55-1.02); Chloride 103 mmol/L (98-107); Glucose 91 mg/dL (70-100); Potassium 3.2 mmol/L (3.5-5.1); Sodium 138 mmol/L (136-145)
[2019-04-06 12:16] LABS: Anisocytosis 2+; Diff Comment RBC Morph Reviewed; Hypochromasia 2+; Microcytosis 2+; Polychromasia Present
[2019-04-06 12:17] LABS: Neutrophils % 73.8; Poikilocytes 1+
[2019-04-06] MEDS: Omnipaque 350 MG/ML 100 ML BTL IJ (12:41)
--- NOTE | 2019-04-06 12:48 | DI.CT_ITS ---
SYMPTOMS/DIAGNOSIS: RT FACIAL SWELLING, ? DENTAL ABSCESS, ? EXTENSION OF DENTAL ABSCESS RT ANT MAXILLA CT SCAN OF THE FACE: Post contrast CT scan of the face was performed. The frontal sinuses are clear. There is minimal mucosal thickening in the right ethmoid air cells. There is moderate mucosal thickening in the right maxillary sinus. No fluid levels are seen in the sinuses. The mastoid air cells are well pneumatized. The orbits and retro-orbital soft tissues are unremarkable. There is inflammatory stranding seen in the right periorbital region and overlying the right maxilla and mandible. No drainable fluid collection is appreciated. The bones show no findings to suggest acute osteomyelitis. Mildly enlarged reactive lymph nodes are seen in the submandibular region. IMPRESSION: 1. Inflammatory stranding overlying the right face. This likely reflects cellulitis. No evidence of a drainable abscess is seen. 2. Mild right paranasal sinusitis. The findings were discussed with the emergency department on the date of the examination.
[2019-04-06] MEDS: Potassium Chloride 20 MEQ TABCR 40 MEQ PO (13:07)
[2019-04-06] MEDS: Ketorolac 30 MG/ML VIAL IVP (13:08)
[2019-04-06 13:14] VITALS: BP 130/96; PULSE 76; RESP 14; TEMP 36.7; O2SAT 99
[2019-04-06] MEDS: Clindamycin 300 MG CAP (13:20)
== END 2019-04-06 13:27 | disposition home or self-care (01) ==
PROVIDERS: Emergency Provider Physician Assistant; PCP Nurse Practitioner
DX: L03.211 Cellulitis of face (principal); R22.0 Localized swelling, mass and lump, head
CPT/HCPCS: 36415; 80048; 96361; 96374; 99285; 70487; 85025; 99284; J1885; J3490

== ENCOUNTER 2019-04-17 00:50 | Outpatient (CLI) | payer OTHER, SELFPAY ==
--- NOTE | 2019-04-17 14:35 | DI.MRI_ITS ---
SYMPTOMS/DIAGNOSIS: RIGHT SHOULDER PAIN X 1 YEAR, NO KNOWN INJURY, NO RADIATING PAIN MRI OF THE RIGHT SHOULDER: Routine noncontrast examination was performed. The supraspinatus, infraspinatus, teres minor and subscapularis tendons are intact. The muscles show normal signal and size. The biceps tendon has a normal appearance and location. The glenoid labrum is grossly unremarkable. The articular cartilage at the glenohumeral joint is unremarkable. The ligaments are intact. No focal fluid collection or soft tissue mass is appreciated. There are moderate hypertrophic changes at the acromioclavicular joint. The marrow signal is otherwise within normal limits. No evidence of an occult fracture or avascular necrosis. IMPRESSION: 1. No evidence of a rotator cuff or labral tear on this noncontrast examination. 2. Moderate arthritis of the acromioclavicular joint.
--- NOTE | 2019-04-17 15:52 | DI.VRAD_ITS ---
EXAM: MR Right Upper Extremity Joint Without Contrast, Shoulder EXAM DATE/TIME: 04/17/2019 2:34 PM CLINICAL HISTORY: 43 years old, female; Patient HX: Right shoulder pain. ; Additional info: No known injury, no HX of surgery, no radiating pain. TECHNIQUE: Imaging protocol: MR of the Right upper extremity without contrast. Exam focused on the shoulder. COMPARISON: CR XR shoulder RT complete 2+V 02/22/2019 10:12 AM FINDINGS: TENDONS: Supraspinatus: Unremarkable. No evidence of tear. Infraspinatus: Unremarkable. No evidence of tear. Subscapularis: Unremarkable. No evidence of tear. Teres minor: Unremarkable. No evidence of tear. Biceps brachii, long head: Unremarkable. No evidence of tear. LIGAMENTS: Glenohumeral: Unremarkable. Glenoid labrum: Unremarkable. No evidence of tear. Cartilage: Unremarkable. Fluid: No joint effusion. Muscles: Unremarkable. Bones/joints: Advanced a.c. joint arthrosis. Bones are otherwise unremarkable. IMPRESSION: Advanced a.c. joint arthrosis. Dictated and Authenticated by: Roland Crabtree MD. Ordering:MILDRED Jo MD
== END 2019-04-17 01:10 ==
PROVIDERS: PCP Nurse Practitioner; Visit Provider Orthopaedic Surgery
DX: M25.511 Pain in right shoulder (principal); M19.011 Primary osteoarthritis, right shoulder
CPT/HCPCS: 73221

== ENCOUNTER 2019-06-20 11:27 | Day surgery (SDC) | payer OTHER, SELFPAY ==
[2019-06-20] VITALS (7 sets, daily range): BP systolic 103–119; BP diastolic 41–65; PULSE 58–87; RESP 16–23; TEMP 36.3–36.4; O2SAT 96–100
[2019-06-20] MEDS: Lactated Ringers 1,000 ML 80 ML IV (12:20)
--- NOTE | 2019-06-20 13:32 | W.PREOPHP ---
Date of service: 06/20/19 Time of Service: 13:32 Assessment and Plan (1) Right shoulder tendonitis: Current visit: No Status: Acute A// Dr. Pillai discussed that the primary cause of her right shoulder pain is DJD of the AC joint on the right. She most likely has secondary tendinitis of rotator cuff when she uses her arm a lot while working. She is a candidate for a distal clavicle excision to alleviate his symptoms. Dr. Pillai discussed with her the surgery risks and complications expected postoperative course. She will most likely be out of work 2 to 4 weeks max following the surgery. P// Excision of distal clavicle on the right under outpatient general anesthesia. History of Present Illness Chief Complaint: Right Shoulder DJD of AC Joint Narrative: 43 y/o female with complaints of right shoulder pain. She was seen in the office by Dr. Pillai, he reviewed the MRI scan with Emmett. There is no evidence of a rotator cuff tear. Glenohumeral joint is well-maintained. The biceps tendon is located in the bicipital groove with no fluid around it. There is marked degeneration of the AC joint with hypertrophic spurring of distal clavicle causing some mild impingement on the subacromial bursa and supraspinatus tendon. Dr. Pillai discussed that the primary cause of her right shoulder pain is DJD of the AC joint on the right. She most likely has secondary tendinitis of rotator cuff when she uses her arm a lot while working. She is a candidate for a distal clavicle excision to alleviate his symptoms. Dr. Pillai discussed with her the surgery risks and complications expected postoperative course. She will most likely be out of work 2 to 4 weeks max following the surgery. Review of Systems Constitutional Reports as per [facility] Medical History Back pain (Acute) Knee cartilage, torn, right (Acute) Surgical History (Updated 06/20/19 @ 11:54 by Nohemi Witt) H/O section (Chronic) History of bilateral tubal ligation (Acute) History of knee surgery (Acute) Hx of breast surgery (Acute) Hx of elbow surgery (Acute) Social History Smoking/Tobacco Use Status: Current every day Tobacco Type: cigarettes Smoking cigarettes per day: 11 Tobacco: How many years used: 30 Quit status: has quit before Alcohol Intake: never Drug use: Never Substance use type: does not use Details: pt. 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 Meds Home Medications Medication Instructions Recorded Confirmed Type acetaminophen 500 mg tablet 1,000 mg PO Q6H PRN tab 02/22/19 06/20/19 History ibuprofen 800 mg tablet 800 mg PO TID 02/22/19 06/20/19 History Allergies Allergy/AdvReac Type Severity Reaction Status Date / Time codeine Allergy Unknown high fever Unverified 06/20/19 11:51 Exam Const General: cooperative, healthy appearing and comfortable Orientation: alert and oriented x3 Resp Effort & Inspection: normal respiratory effort, no audible wheezes and no cough Auscultation: clear to auscultation bilaterally Cardio Jugular venous pressure: no JVD Rate: regular rate Rhythm: regular rhythm Heart Sounds: S1 normal, S2 normal and no murmurs GI Inspection: normal to inspection and non-distended Palpation: soft, no guarding and nontender Auscultation: normal bowel sounds Results Last Vital Signs Temp 36.4 C L 06/20/19 12:04 Pulse 72 06/20/19 12:04 Resp 16 06/20/19 12:04 BP 118/65 06/20/19 12:04 Pulse Ox 100 06/20/19 12:04
[2019-06-20] MEDS: ceFAZolin 1 GM/50 ML BAG IVPB (13:43)
--- NOTE | 2019-06-20 14:26 | PDOC.DSDIS_ITS ---
Discharge Plan Disposition Patient Disposition: HOME Condition: Good Discharge Details Reason For Visit: eXCISION DISTAL CLAVICLE R Attending Provider: Sandro Pillai Primary Care Provider: Nicole Robertson Home Meds and New Rx's Prescriptions: New hydrocodone-acetaminophen 5-325 mg tablet 1 tab PO Q6H PRN (Reason: pain) Qty: 14 RF: 0 Continued ibuprofen 800 mg tablet 800 mg PO TID RF: 0 acetaminophen [Tylenol Extra Strength] 500 mg tablet 1,000 mg PO Q6H PRNRF: 0 Discharge Instructions Additional Instructions: Sling for comfort. May take R arm out of sling as often and for as long as your discomfort allows. Should wean yourself out of the sling completely over the next 2 weeks. Remove dressings, shower, and get incision wet on Tuesday. Leave incision uncovered when it is dry and sealed. Use R arm as much as your pain allows. Outpatient physical therapy next Tuesday for ROM R shoulder. Follow up with in 2 weeks. Take tylenol or ibuprofen for mild pain. Take hydrocodone for breakthru pain, if needed. Referrals: Sandro Pillai MD [ [facility] STAFF PHYSICIAN] - (f/u in 2 weeks.) Equipment/Supplies: Sling Activity:: Activity as Tolerated Remove Dressings/Wound Care:: 72 hours Shower/Bathe:: 72 hours Diet:: As Tolerated Discharge Orders Discharge Orders: Discharge Order (Routine); Ordered 06/20/19 Ordered By: Sandro Pillai DS: Diagnosis Discharge Diagnosis (1) Right shoulder tendonitis: Status: Acute (2) DJD of AC (acromioclavicular) joint: Status: Acute
--- NOTE | 2019-06-20 14:38 | W.PM.DS.N ---
DS: Diagnosis Discharge Diagnosis (1) Right shoulder tendonitis: Status: Acute (2) DJD of AC (acromioclavicular) joint: Status: Acute Discharge Plan Disposition Patient Disposition: HOME Condition: Good Discharge Details Reason For Visit: eXCISION DISTAL CLAVICLE R Attending Provider: Sandro Pillai Primary Care Provider: Nicole Robertson Home Meds and New Rx's Prescriptions: New hydrocodone-acetaminophen 5-325 mg tablet 1 tab PO Q6H PRN (Reason: pain) Qty: 14 RF: 0 Continued ibuprofen 800 mg tablet 800 mg PO TID RF: 0 acetaminophen [Tylenol Extra Strength] 500 mg tablet 1,000 mg PO Q6H PRNRF: 0 Discharge Instructions Additional Instructions: Sling for comfort. May take R arm out of sling as often and for as long as your discomfort allows. Should wean yourself out of the sling completely over the next 2 weeks. Remove dressings, shower, and get incision wet on Tuesday. Leave incision uncovered when it is dry and sealed. Use R arm as much as your pain allows. Outpatient physical therapy next Tuesday for ROM R shoulder. Follow up with in 2 weeks. Take tylenol or ibuprofen for mild pain. Take hydrocodone for breakthru pain, if needed. Apply ice bag to top of R shoulder 4 times/day for 1 hour each time over next 48 hours to decrease swelling and pain. Referrals: Sandro Pillai MD [ [facility] STAFF PHYSICIAN] - (f/u in 2 weeks.) Equipment/Supplies: Sling Activity:: Activity as Tolerated Remove Dressings/Wound Care:: 72 hours Shower/Bathe:: 72 hours Diet:: As Tolerated Discharge Orders Discharge Orders: Discharge Order (Routine); Ordered 06/20/19 Ordered By: Sandro Pillai DS: Data Vitals/I&O Vitals and I&O: Vital Signs Temperature 36.4 C L 06/20/19 12:04 Pulse 72 06/20/19 12:04 Pulse Rhythm Regular 06/20/19 12:04 Respiratory Rate 16 06/20/19 12:04 Respiratory Depth Normal 06/20/19 12:04 Blood Pressure 118/65 06/20/19 12:04 Pulse Oximetry 100 06/20/19 12:04 Oxygen Delivery Method Room Air 06/20/19 12:04 Oxygen Flow Rate 0 08/14/19 12:04 Pain Level 0 06/20/19 12:04 Intake & Output 06/19/19 06/20/19 06/20/19 23:59 11:59 23:59 Intake Total 550 / 550 Balance 550 / 550 Weight 78.5 kg 78.5 kg Intake: IV 550 / 550 [facility] Medical History (Updated 06/20/19 @ 14:26 by Sandro Pillai MD) Back pain (Acute) Knee cartilage, torn, right (Acute) Surgical History (Updated 06/20/19 @ 11:54 by Nohemi Witt) H/O section (Chronic) History of bilateral tubal ligation (Acute) History of knee surgery (Acute) Hx of breast surgery (Acute) Hx of elbow surgery (Acute) Social History Smoking/Tobacco Use Status: Current every day Tobacco Type: cigarettes Tobacco: How many years used: 30 Quit status: has quit before Alcohol Intake: never Drug use: Never Substance use type: does not use Details: pt. 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
[2019-06-20] MEDS: HYDROcodone 5/Acetaminophen 325 TAB PO (16:04)
--- NOTE | 2019-06-21 12:46 | ROE_ITS ---
JUNE 20, 2019 PREOPERATIVE DIAGNOSIS: Degenerative joint disease of the right acromioclavicular joint. POSTOPERATIVE DIAGNOSIS: Same. OPERATION: Excision of the distal clavicle, right. ANESTHESIA: General by Fahad Etienne [employer] EXPERIMENTAL MECHANIC: STEPHANIE Chapman INDICATIONS: This is a 43-year-old, white female with right shoulder pain of several months duratio n. This has not responded to conservative treatment including subacromial space injection. Exam and x-rays localize the pain arising from the acromioclavicular joint on the right. Because of the failure to improve with conservative treatment excision of the distal clavicle was recommended to alleviate her pain. The risks and complications of the procedure were explained to the patient in detail preoperatively. PROCEDURE: The patient was taken to the Operating Room on 06/20/19. She was placed supine on the op erating table and general anesthetic was administered. [facility] was [facility]. The superior aspect of the right shoulder was then prepped and block draped in the usual sterile [facility] ion. Longitudinal incision was made and centered over the acromioclavicular joint, measuring about 3 inches in length. The incision was carried down to the acromioclavicular joint capsule and the kaylen osteum of the distal clavicle. Subcutaneous veins were cauterized. Longitudinal incision was made o n the dorsum of the acromioclavicular joint capsule over the distal clavicle and the distal clavicle was subperiosteally exposed. The distal centimeter of the clavicle was transected and then excised w ith sharp dissection. The resected end of the clavicle was packed with bone wax after irrigation wit h saline solution. The subacromial bursa was infiltrated with .5% Marcaine with Epinephrine solution and then the wound margins, starting with the acromioclavicular joint capsule and then progressing to the subcutaneous t issue were infiltrated with .5% Marcaine with Epinephrine solution. The acromioclavicular joint capsule and the periosteum of the distal clavicle were approximated with interrupted figure of eight sutures of #1 Vicryl suture material. The subcutaneous tissue was approx imated with interrupted #2-0 Vicryl sutures and a running subcuticular suture of #4-0 Monocryl was pe rformed and supplemented with steri strips for wound closure. The wound was dressed with Xeroform gauze, sterile gauze 4 x 4s, half of an ABD pad and taped with pa per tape. The right arm was placed in a sling. The patient's anesthesia was reversed without complication. Blood loss was less than 20 cc. The patient was discharged to the Recovery Room in good condition. The patient was discharged home from the Day Surgery Unit when fully recovered from her general anest hesia. She was given instructions to use the sling for comfort. She may take her arm out of the sling often and for as long as discomfort allows. She should wean herself out of the sling as soon as discomfor t allows. She is to apply ice to the surgical site four times a day for one hour each time over the next 48-hours. She will begin outpatient physical therapy for range of motion of the right shoulder starting on 06/25. She may remove her dressing, shower and get her incision wet in 72-hours. She can leave the incision uncovered when it is dry and sealed. She will take Tylenol or Ibuprofen for mild pain. She was given a prescription for breakthrough pain of Hydrocodone with APAP 5/325 mg. one tablet every 6-hours if needed. Follow-up with me in 2-weeks.
== END 2019-06-20 16:45 | disposition home or self-care (01) ==
PROVIDERS: PCP Nurse Practitioner; Visit Provider Orthopaedic Surgery
PROC: (CPT 23120; principal; 2019-06-20 13:45)
DX: M19.011 Primary osteoarthritis, right shoulder (principal); M25.511 Pain in right shoulder; Y99.0 Civilian activity done for income or pay
CPT/HCPCS: 23120; 81025; NC; J0690; J1100; J1885; J2405; L3650

== ENCOUNTER 2019-11-14 10:31 | Emergency (ER) | payer SELFPAY ==
[2019-11-14 10:39] VITALS: BP 135/63; PULSE 72; RESP 16; TEMP 36.7; O2SAT 97
--- NOTE | 2019-11-14 11:05 | ED.GENADUL_ITS ---
Discharge Plan Disposition Patient Disposition: HOME Condition: Improving Discharge Details Chief Complaint: RespSymp Clinical Impression: Acute bronchitis with bronchospasm Primary Care Provider: Nicole Robertson ED Provider: Sandro Martinez Home Meds and New Rx's Prescriptions: Continued ibuprofen 800 mg tablet 800 mg PO TID RF: 0 acetaminophen [Tylenol Extra Strength] 500 mg tablet 1,000 mg PO Q6H PRNRF: 0 Discharge Instructions Instructions: Acute Bronchitis (ED) Additional Instructions: Take medications as prescribed. Follow-up with regular doctor if not improving in 5 days time. Return to the ER for any acute concerns. Home to rest today. Small, frequent sips of fluids to maintain hydration. Medical Decision Making 44-year-old female smoker presents with days of cough, congestion, postnasal drip with associated mild wheeze. Her vital signs are normal and she is not hyp oxic. Her exam reveals bilateral end expiratory wheeze. The patient has a presentation consistent with bronchitis, sinusitis, bronchospasm. I will treat her with a course of antibiotics, burst of steroids, she was given an albuterol rescue inhaler for use during times of illness. Do not feel that she has evidence of PE or other dire cardiopulmonary etiology for her presentation. Discussed with her return precautions to the ER. HPI General Mode of arrival: ambulatory . Date/Time Provider Initiated Documentation: 11/14/19 10:43 . Limitations to Documentation: no limitations . Information obtained by: patient . History of Present Illness 44 year old F presents to the emergency department with the chief complaint of Cough, congestion, postnasal drip, wheeze, described as moderate and similar to prior episodes, Quality is described as dull, and is localized to the chest. Patient reports no radiation. Patient started experiencing this day(s) and it has been constant. Rest improves symptom(s), Movement worsens symptoms . Patient notes cough, fever/chills, loss of appetite and malaise; denies chest pain, nausea/vomiting and syncope. Patient did receive the following treatments prior to arrival, none Related Data Home Medications Medication Instructions Recorded Confirmed acetaminophen 500 mg tablet 1,000 mg PO Q6H PRN tab 02/22/19 11/14/19 ibuprofen 800 mg tablet 800 mg PO TID 02/22/19 11/14/19 Allergies Allergy/AdvReac Type Severity Reaction Status Date / Time codeine Allergy Unknown high fever Verified 11/14/19 10:42 General Stated Complaint: RespSymp REECE: 3 Review of Systems Narrative: 6 systems reviewed and otherwise negative. Positive sick contacts in her home. Decreased but positive tobacco use. [facility] Medical History Back pain (Acute) Knee cartilage, torn, right (Acute) Surgical History (Updated 06/20/19 @ 11:54 by Nohemi Witt) H/O section (Chronic) History of bilateral tubal ligation (Acute) History of knee surgery (Acute) Right Hx of breast surgery (Acute) R, clogged milk duct Hx of elbow surgery (Acute) right Social History Smoking/Tobacco Use Status: Current every day Tobacco Type: cigarettes Tobacco: How many years used: 30 Quit status: has quit before Alcohol Intake: never Drug use: Never Substance use type: does not use Details: pt. 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 Pleasant, well groomed, interactive. HEAD: Normocephalic, atraumatic ENT: Mucous membranes moist, oropharynx unremarkable, External ear exam unremarkable EYES: PERRL, EOMI NECK: Full ROM, no PILAR, no menigismus CHEST/RESP: Nontender, clear to auscultation bilateral, few scant end expiratory wheeze bilaterally CARDIOVASCULAR: RRR, no murmur, rub estela. 2+ Rad pulse bilateral ABDOMEN: Soft, nontender, no mass. +Bowel sounds EXT: Full ROM, no edema, no rash Neuro: Grossly normal neurologic exam, conversant, interactive. Psych: Speech fluent, thoughts congruent, affect normal Course Vital Signs Vital signs: Vital Signs Temperature 36.7 C 11/14/19 10:39 Pulse 72 11/14/19 10:39 Respiratory Rate 16 11/14/19 10:39 Blood Pressure 135/63 11/14/19 10:39 Pulse Oximetry 97 11/14/19 10:39 Temperature 36.7 C 11/14/19 10:39 Temperature Source Temporal Artery Scan 11/14/19 10:39 Pulse 72 11/14/19 10:39 Respiratory Rate 16 11/14/19 10:39 Respiratory Effort Non-Labored 11/14/19 10:43 Blood Pressure 135/63 11/14/19 10:39 Blood Pressure Position Sitting 11/14/19 10:39 Pulse Oximetry 97 11/14/19 10:39 Oxygen Delivery Method Room Air 11/14/19 10:39 Oxygen Flow Rate 0 11/14/19 10:39
[2019-11-14] MEDS: Albuterol HFA 8 GM 60 PUFF INH IH (11:20)
[2019-11-14] MEDS: Inhaler, Assist Device 1 EACH MC (11:20)
== END 2019-11-14 11:26 | disposition home or self-care (01) ==
LOC: ER 11:41
PROVIDERS: Emergency Provider Emergency Medicine; PCP Nurse Practitioner
DX: J20.9 Acute bronchitis, unspecified (principal); F17.210 Nicotine dependence, cigarettes, uncomplicated
CPT/HCPCS: 99283

== ENCOUNTER 2020-01-25 07:46 | Emergency (ER) | payer SELFPAY ==
[2020-01-25 07:52] VITALS: BP 143/86; PULSE 91; RESP 20; TEMP 36.6; O2SAT 98
--- NOTE | 2020-01-25 08:16 | ED.GENADUL_ITS ---
Discharge Plan Disposition Patient Disposition: HOME Condition: Stable Discharge Details Chief Complaint: SOB Clinical Impression: URI (upper respiratory infection) Primary Care Provider: Nicole Robertson ED Provider: Becca Goode Home Meds and New Rx's Prescriptions: New benzonatate [Tessalon Perles] 100 mg capsule 100 mg PO BID-TID PRN (Reason: cough) Qty: 10 RF: 0 Continued ibuprofen 800 mg tablet 800 mg PO TID RF: 0 acetaminophen [Tylenol Extra Strength] 500 mg tablet 1,000 mg PO Q6H PRNRF: 0 Discharge Instructions Instructions: Upper Respiratory Infection (ED) Additional Instructions: Follow up with primary care provider in 3-5 days. Return to ED sooner if any w orsening or concerns. Increase oral fluids. Please take Tylenol with food every 4-6 hours as needed for pain and swelling. Take medications as directed. At this time your symptoms are very concerning for coronavirus. Due to the increased likelihood of your symptoms being from coronavirus the CDC does recommend testing. It takes 48 to 72 hours for the test results to return. You will be contacted by [facility] staff when your results return. If you do not hear from them in 48 to 72 hours, please contact [facility]. Out of an abundance of precaution it is highly recommended that you self quarantine yourself for a total of 14 days or until symptom-free for greater than 24 to 48 hours. It would be prudent to wear a mask at all times, always wash her hands frequently, and follow-up closely with your primary care provider. It is recommended that you call your primary care provider prior to reassessment. If you are going to a health facility, please call/contact them before you arrive. At this time based on your current symptoms the CDC does not recommend admission, and there is no current clinical indication for your admission here at the hospital. However it is vitally important to monitor your symptoms closely, and if you notice any worsening of your symptoms, or any new symptoms such as worsening shortness of breath, difficulty breathing, persistent fever, worsening chills, chest pain, numbness, weakness, or fainting please call and then return immediately to the emergency department for reevaluation. Please call your primary care provider as soon as possible to make them aware of your current situation and for continued monitoring. As always, it was a pleasure participating in your medical care today. 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 Nonproductive cough, no past medical history. T-max of 101.8 months. Chest x-ray, influenza swab and covid 19 ordered. EXAM: XR PORTABLE CHEST AP XR PORTABLE CHEST AP CLINICAL HISTORY: SOB, cough. SOB, cough TECHNIQUE: 2D digital imaging was performed. COMPARISON: No exams were available for comparison FINDINGS: LUNGS: Clear. No pleural abnormality seen. HEART: Normal. MEDIASTINUM: Normal. OTHER FINDINGS: None. IMPRESSION: No acute pulmonary findings. 1016: Influenza negative, plan is to discharge patient home with strict return instructions and home care. Will prescribe Tessalon perrles and albuterol inhale (which patient states she already has). On patient re-evaluation, her only complaint is fatigue. She has remained hemodynamically stable and is in no acute distress. Currently the patient does have a concerning history and/or direct or known indirect exposure to an area and/or patient's with known coronavirus activity. The patient demonstrates some concerning red flags as noted by the CDC for coronavirus including fever, cough, and/or shortness of breath. The patient looks notably clinically well, and does not demonstrate evidence of respiratory distress, significant or severe illness, or sepsis. Per CDC recommendations, coronavirus testing has been performed and is approved by the [facility] (formerly [facility] Arnie tionally patient currently does not demonstrate symptoms indicative of admission or further observation here. At this time based on the patient's current clinical picture symptoms are likely secondary to a non-coronavirus viral illness. Out of an abundance of precaution taking into account the current level of national concern, the patient's entire clinical picture, and CDC recommendations, the patient can be discharged home. Per CDC recommendations we will recommend a 14-day quarantine of the patient I have discussed good handwashing techniques, the importance of a mask, and we have also included CDC recommendations for home monitoring and isolation. I have extensively reviewed the treatment plan and discharge instructions with the patient. I have addressed all patient concerns at this time. The patient was made aware of what symptoms to monitor for that would warrant a return to the emergency department. I also discussed the importance of calling the patient's PCP, as well as the ED for any concerns or prior to return. Discussed the plan with the patient, they demonstrate verbal understanding and agreement with our assessment and plan at this time. HPI General Mode of arrival: ambulatory . Date/Time Provider Initiated Documentation: 01/25/20 08:07 . Limitations to Documentation: no limitations . Information obtained by: patient . 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 Nonproductive cough, no past medical history. T-max of 101.8 months. Related Data Home Medications Medication Instructions Recorded Confirmed acetaminophen 500 mg tablet 1,000 mg PO Q6H PRN tab 02/22/19 01/25/20 ibuprofen 800 mg tablet 800 mg PO TID 02/22/19 01/25/20 benzonatate [Tessalon Perles] 100 mg PO BID-TID PRN #10 cap 01/25/20 Previous Rx's Medication Instructions Recorded benzonatate [Tessalon Perles] 100 mg PO BID-TID PRN #10 cap 01/25/20 Allergies Allergy/AdvReac Type Severity Reaction Status Date / Time codeine Allergy Unknown high fever Verified 01/25/20 07:55 General Stated Complaint: SOB REECE: 3 Review of Systems Narrative: Constitutional: Negative for weight loss, alert and oriented, well groomed, normal body habitus, appears comfortable. Positive fever. HEENT: Denies trauma, headaches, blurry vision, nasal discharge, sore throat, trouble swallowing. Chest: Denies chest pain, palpitations, irregular rhythm, hypertension. Respiratory: Reports cough, shortness of breath. GI: Denies abdominal pain, nausea, vomiting, diarrhea, constipation. : Denies dysuria, hematuria, flank pain, rectal bleeding. Neuro: Denies dizziness, blurry vision, weakness, syncope, headache or facial numbness. Hematologic: Denies easy bruising, intolerance to heat or cold, hair loss. [facility] Medical History Back pain (Acute) Knee cartilage, torn, right (Acute) Surgical History H/O section (Chronic) History of bilateral tubal ligation (Acute) History of knee surgery (Acute) Right Hx of breast surgery (Acute) R, clogged milk duct Hx of elbow surgery (Acute) right Social History Smoking/Tobacco Use Status: Current every day Tobacco Type: cigarettes Tobacco: How many years used: 30 Quit status: has quit before Alcohol Intake: never Drug use: Never Substance use type: does not use Details: pt. denies surgical hardware Household members: spouse and family Housing: apartment Number of Children: 6 Education Level: high school current occupation: [employer] Current gender identity: female 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 Exam Narrative Exam Narrative: Constitutional: Allert and oriented x3. Appears stated age. Normal body habitus. Head: Normocephalic, no trauma. Eyes: Pupils PERRLA, Red reflex noted, EOM's intact. Eyelids symmetrical withour lesions, discharge, or swelling. ENT: Bilateral TM's WNL, External ear normal to inspection, no mastoid TTP, swelling, or erythema, Nasal turbinates WNL, no nasal discharge. Normal dentition, Posterior pharynx WNL, no exudate. Chest: RRR, Normal S1, S2, distal pulses intact. Resp: Lungs clear to auscultation bilaterally, no wheezes, rales, or rhonchi. Positive cough. Musculoskeletal: Normal gait, 5/5 strength to all four extremities. Skin: No suspicious rashes or lesions. Capillary refill ?2 sec. Neurologic: Cranial nerves II-XII intact. Alert and oriented x 3. DTR's intact. Hematologic/Lymphatic: No ecchymosis, no lymphadenopathy. Course Vital Signs Vital signs: Vital Signs Temperature 36.6 C 01/25/20 07:52 Pulse 91 H 01/25/20 07:52 Respiratory Rate 01/25/20 07:52 Blood Pressure 143/86 H 01/25/20 07:52 Pulse Oximetry 98 01/25/20 07:52 Temperature 36.6 C 01/25/20 07:52 Temperature Source Temporal Artery Scan 01/25/20 07:52 Pulse 91 H 01/25/20 07:52 Respiratory Rate 01/25/20 07:52 Respiratory Effort 01/25/20 07:56 Blood Pressure 143/86 H 01/25/20 07:52 Blood Pressure Position Sitting 01/25/20 07:52 Pulse Oximetry 98 01/25/20 07:52 Oxygen Delivery Method Room Air 01/25/20 07:52 Oxygen Flow Rate 0 01/25/20 07:52 Pain Level 0 01/25/20 07:52
[2020-01-25] MEDS: Benzonatate 100 MG CAP PO (09:08)
--- NOTE | 2020-01-25 09:38 | DI.RAD_ITS ---
EXAM: XR PORTABLE CHEST AP XR PORTABLE CHEST AP CLINICAL HISTORY: SOB, cough. SOB, cough TECHNIQUE: 2D digital imaging was performed. COMPARISON: No exams were available for comparison FINDINGS: LUNGS: Clear. No pleural abnormality seen. HEART: Normal. MEDIASTINUM: Normal. OTHER FINDINGS: None. IMPRESSION: No acute pulmonary findings. DATA REPOSITORY: RADIATION DOSE DELIVERED:
[2020-01-25 10:43] VITALS: BP 123/76; PULSE 86; RESP 16; TEMP 37.1; O2SAT 99
[2020-01-29 08:33] LABS: COVID-19 RT-PCR Result Not Detected (NotDetected)
== END 2020-01-25 10:52 | disposition home or self-care (01) ==
LOC: ER 10:42
PROVIDERS: Emergency Provider Registered Nurse Emergency; PCP Nurse Practitioner
DX: J06.9 Acute upper respiratory infection, unspecified (principal); Z03.818 Encounter for observation for suspected exposure to other biological agents ruled out
CPT/HCPCS: 87449; 99284; U0003; 71045

== ENCOUNTER 2020-06-03 08:01 | Emergency (ER) | payer SELFPAY ==
[2020-06-03 08:12] VITALS: BP 142/88; PULSE 92; RESP 20; TEMP 36.7; O2SAT 100
--- NOTE | 2020-06-03 08:34 | ED.GENADUL_ITS ---
Discharge Plan Disposition Patient Disposition: HOME Discharge Details Chief Complaint: Nk/Back Pain Clinical Impression: Kidney stone Primary Care Provider: None,None ED Provider: Jacobo Oconnell Home Meds and New Rx's Prescriptions: New oxycodone-acetaminophen [Percocet] 5-325 mg tablet 1 tab PO Q6H PRNQty: 8 RF: 0 tamsulosin [Flomax] 0.4 mg capsule 0.4 mg PO DAILY Qty: 5 RF: 0 Continued ibuprofen 800 mg tablet 800 mg PO TID RF: 0 Discontinued acetaminophen [Tylenol Extra Strength] 500 mg tablet 1,000 mg PO Q6H PRNRF: 0 Discharge Instructions Instructions: Kidney Stones (ED) Additional Instructions: Percocet and Flomax as directed, Percocet may cause drowsiness and/or constipation. Plenty of fluids to avoid dehydration and to help pass the stone. Please watch for new or worsening symptoms and return to the ER for any concerns. I have placed you on the urology list and I will give you their name and number to contact tomorrow for prompt outpatient reevaluation. Referrals: Lawrence Calloway MD [ [facility] STAFF PHYSICIAN] - Medical Decision Making 44-year-old female presents with sudden onset right sided lower back pain this morning after getting out of the shower. Patient appears well, no acute distress. Certainly could be musculoskeletal in nature however she does not recall any obvious trauma and it was sudden onset. She does have a history of pyelonephritis but denies any dysuria or hematuria. I do believe obtaining routine laboratory values including urinalysis is reasonable. There is no flank or abdominal pain whatsoever however certainly cannot rule out biliary colic, pyelonephritis, renal stone, appendicitis, etc. Initial labs returned revealing anemia which appears to be baseline. Platelet count 453. Electrolytes and renal function unremarkable. Urinalysis clear. Patient given Toradol with no relief. I do not have any additional information regarding her etiology of her symptoms given her unremarkable laboratory values. She is agreeable to have a CT of her abdomen and pelvis with contrast for further evaluation. Will provide 2 mg IV morphine. Patient has received 1 L of IV fluid, Toradol and morphine. CT shows a punctate nonobstructing stone at the right lower pole and adjacent area of scarring, no other acute abnormality is seen. Given the pain is on the right side-flank, sudden onset, certainly stone could explain her symptoms. Patient reports that her pain is more tolerable but not gone at this time. I will now give a single dose of IV Dilaudid. Patient received moderate relief with that medication. We discussed her laboratory values and CT findings once again. We will provide her a short-term dose of Percocet, Flomax, she will continue [id number] anti- inflammatories and be sure to have adequate fluid intake. I will place her on the urology callback list and will give her the name and number of Dr. Calloway so she may call the office tomorrow for prompt outpatient reevaluation. Patient is comfortable this plan and has no additional questions or concerns. Medical Records Medical records reviewed: Yes I reviewed the patient's medical records. Imaging Data Radiologic Study: Attestation: I personally reviewed and interpreted this imaging study as follows: Imaging: CT Scan Radiologist's impression: CT abdomen and pelvis with contrast read as a punctate nonobstructing stone at the lower pole the right kidney and adjacent area of scarring. No acute normality seen in the abdomen or pelvis. Lab Data Lab results reviewed: Yes I reviewed the patient's lab results. Lab results narrative: Laboratory Tests Range/Units 06/03/20 06/03/20 06/03/20 08:49 09:02 09:02 WBC (4.4-10.8) k/cumm 7.65 RBC (4.00-5.20) m/cumm 4.39 Hgb (12.0-15.5) g/dL 8.6 L Hct (36.0-46.0) % 30.1 L MCV (80-95) fL 68.6 L MCH (27.0-33.0) pg 19.6 L MCHC (32.0-36.0) g/dL 28.6 L RDW (11.7-14.6) % 18.3 H Plt Count (130-400) x1000/uL 453 H MPV (8.0-11.0) fL 9.6 Immature Gran % % 0.3 Neutrophils % 69.7 Lymphocytes % 18.8 Monocytes % 8.0 Eosinophils % 2.7 Basophils % 0.5 Absolute Neutrophils (1.2-6.7) k/cumm 5.33 Absolute Lymphocytes (1.2-3.4) k/cumm 1.44 Absolute Monocytes (0.11-0.7) k/cumm 0.61 Absolute Eosinophils (0.0-0.7) k/cumm 0.21 Absolute Basophils (0.0-0.2) k/cumm 0.04 Differential Comment Diff reviewed RBC Morphology See below Polychromasia Present Hypochromasia 2+ Poikilocytosis 2+ Anisocytosis 1+ Microcytosis 2+ Sodium (136-145) mmol/L 141 Potassium (3.5-5.1) mmol/L 3.8 Chloride (98-107) mmol/L 106 Carbon Dioxide (21.0-32.0) mmol/L 24.0 Anion Gap (3-11) mmol/L 11.0 BUN (7-18) mg/dL 15 Creatinine (0.55-1.02) mg/dL 0.68 Estimated GFR/1.73 m2 (mL/min/1.73m2) >= 60.00 Glucose (74-106) mg/dL 99 Calcium (8.5-10.1) mg/dL 9.2 Total Bilirubin (0.2-1.0) mg/dL 0.3 AST (15-37) U/L 21 ALT (14-59) U/L 26 Alkaline Phosphatase (46-116) U/L 86 Total Protein (6.4-8.2) g/dL 7.6 Albumin (3.4-5.0) g/dL 3.9 Lipase (73-393) U/L 123 Urine Color (Yellow) Yellow Urine Clarity (Clear) Clear Urine pH (5-8) 6.0 Ur Specific [place] (1.005-1.025) 1.025 Urine Protein (Negative) mg/dL Negative Urine Ketones (Negative) mg/dL Negative Urine Blood (Negative) Negative Urine Nitrite (Negative) Negative Urine Bilirubin (Negative) Negative Urine Urobilinogen (Up TO 0.2) EU/dL 0.2 Ur Leukocyte Esterase (Negative) Negative Urine Glucose (Negative) mg/dL Negative HPI General Mode of arrival: ambulatory . Date/Time Provider Initiated Documentation: 06/03/20 08:17 . Limitations to Documentation: no limitations . Information obtained by: patient . HPI Narrative: 44-year-old female with a history of pyelonephritis, presents to the ER reporting sudden onset right sided back pain that began this morning after getting out of the shower. She denies any heavy lifting or obvious trauma. She reports at the time the pain came on she felt nauseous but the nausea has resolved and she did not vomit. The pain does not radiate up her back, into her chest, across into her abdomen. She does report that the pain is worse with movement or deep breathing, but is there no matter what she does. Pain is moderate to severe. She denies any pain or swelling in her legs. She reports that she has pulled her back in the past but this does not feel anything like that. Denies fever, dysuria, hematuria, vaginal bleeding or discharge. No change in her bowel movements. Related Data Home Medications Medication Instructions Recorded Confirmed ibuprofen 800 mg tablet 800 mg PO TID 02/22/19 06/03/20 oxycodone-acetaminophen [Percocet] 1 tab PO Q6H PRN #8 tab 06/03/20 tamsulosin [Flomax] 0.4 mg PO DAILY #5 cap 06/03/20 Previous Rx's Medication Instructions Recorded oxycodone-acetaminophen [Percocet] 1 tab PO Q6H PRN #8 tab 06/03/20 tamsulosin [Flomax] 0.4 mg PO DAILY #5 cap 06/03/20 Allergies Allergy/AdvReac Type Severity Reaction Status Date / Time codeine Allergy Unknown high fever Verified 06/03/20 08:16 General Stated Complaint: Nk/Back Pain REECE: 3 Review of Systems Constitutional Constitutional: Denies fatigue, Denies fever(s) and Denies weakness ENT Ears, Nose, Mouth, and Throat: Denies neck pain Cardiovascular Cardiovascular: Denies chest pain and Denies dyspnea Respiratory Respiratory: Denies cough and Denies dyspnea Gastrointestinal Gastrointestinal: Reports abdominal pain, Reports nausea and Denies vomiting Genitourinary Genitourinary: Denies abnormal vaginal bleeding and Denies dysuria Musculoskeletal Musculoskeletal: Reports back pain, Denies neck pain, Denies numbness and Denies tingling Integumentary/Breasts Skin/Breast: Denies rash Neurologic Neurologic: Denies numbness, Denies tingling and Denies weakness Endocrine Endocrine: Denies fatigue [facility] Medical History Back pain (Acute) Knee cartilage, torn, right (Acute) Surgical History H/O section (Chronic) History of bilateral tubal ligation (Acute) History of knee surgery (Acute) Right Hx of breast surgery (Acute) R, clogged milk duct Hx of elbow surgery (Acute) right Social History Smoking/Tobacco Use Status: Current every day Tobacco Type: cigarettes Tobacco: How many years used: 30 Quit status: has quit before Alcohol Intake: never Drug use: Never Substance use type: does not use Details: pt. denies surgical hardware Household members: spouse and family Housing: apartment Number of Children: 6 Education Level: high school current occupation: [employer] Current gender identity: female 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 Exam Const General: cooperative, healthy appearing, comfortable and no acute distress Orientation: alert, awake and oriented x3 HENMT Head: normal to inspection, normocephalic and atraumatic Mouth: moist mucous membranes Eyes Conjunctivae: conjunctivae normal Sclera: sclerae normal Neck Neck: normal visual inspection, full ROM, trachea midline and supple Resp Effort & Inspection: normal respiratory effort and able to speak in complete sentences Auscultation: clear to auscultation bilaterally Cardio Rate: regular rate Rhythm: regular rhythm GI Inspection: normal to inspection Palpation: soft, no guarding, not rigid and nontender Auscultation: normal bowel sounds Back/Spine/Pelvis Back: back tenderness (Diffuse right sided upper lumbar, lower thoracic discomfort.) Skin General skin exam: no rashes or lesions noted Neuro General: patient alert, patient awake, patient oriented x3, moves all extremities and no focal motor deficits Sensory Exam: no sensory deficits noted Extrem General: normal to inspection, full ROM, capillary refill normal and no calf tenderness Psych Appearance: grossly normal Mental Status: mental status grossly normal Course Vital Signs Vital signs: Vital Signs Temperature 36.7 C 06/03/20 08:12 Pulse 92 H 06/03/20 08:12 Respiratory Rate 20 06/03/20 08:12 Blood Pressure 142/88 H 06/03/20 08:12 Pulse Oximetry 100 06/03/20 08:12 Temperature 36.7 C 06/03/20 08:12 Temperature Source Skin 06/03/20 08:12 Pulse 92 H 06/03/20 08:12 Respiratory Rate 20 06/03/20 08:12 Respiratory Effort Non-Labored 06/03/20 08:17 Blood Pressure 142/88 H 06/03/20 08:12 Blood Pressure Position Sitting 06/03/20 08:12 Pulse Oximetry 100 06/03/20 08:12 Oxygen Delivery Method Room Air 06/03/20 08:12 Oxygen Flow Rate 0 06/03/20 08:12 Pain Level 10 06/03/20 08:12
[2020-06-03 08:56] LABS: Bilirubin Negative (Negative); Blood Negative (Negative); Clarity Clear (Clear); Glucose Negative (Negative); Ketones Negative (Negative); Leukocyte Esterase Negative (Negative); Nitrite Negative (Negative); Specific Gravity 1.025 (1.005-1.025); Urobilinogen 0.2 EU/dL (Up TO 0.2)
[2020-06-03] MEDS: Normal Saline 1,000 ML 1000 ML IV (09:07)
[2020-06-03 09:17] LABS: Abs Immature Grans 0.02 k/cumm (0.0-0.09); Absolute Basophil Count 0.04 k/cumm (0.0-0.2); Absolute Eosinophil Count 0.21 k/cumm (0.0-0.7); Absolute Lymphocyte Count 1.44 k/cumm (1.2-3.4); Absolute Monocyte Count 0.61 k/cumm (0.11-0.7); Absolute Neutrophil Count 5.33 k/cumm (1.2-6.7); Basophils % 0.5; Eosinophils % 2.7; HCT 30.1 % (36.0-46.0); HGB 8.6 g/dL (12.0-15.5); Immature Grans % 0.3 %; Lymphocytes % 18.8; Mean Corp. HGB Concentration 28.6 g/dL (32.0-36.0); Mean Corpuscular Hemoglobin 19.6 pg (27.0-33.0); Mean Corpuscular Volume 68.6 fL (80-95); Mean Platelet Volume 9.6 fL (8.0-11.0); Neutrophils % 69.7; RBC 4.39 m/cumm (4.00-5.20); RBC Distribution Width 18.3 % (11.7-14.6); White Blood Cell Count 7.65 k/cumm (4.4-10.8)
[2020-06-03 09:39] LABS: ALT 26 U/L (14-59); AST 21 U/L (15-37); Albumin 3.9 g/dL (3.4-5.0); Alkaline Phosphatase 86 U/L (46-116); BUN 15 mg/dL (7-18); Bilirubin, Total 0.3 mg/dL (0.2-1.0); CREATININE 0.68 mg/dL (0.55-1.02); Calcium 9.2 mg/dL (8.5-10.1); Chloride 106 mmol/L (98-107); Diff Comment Diff Reviewed; Glucose 99 mg/dL (74-106); Hypochromasia 2+; Microcytosis 2+; Platelet Count 453 x1000/uL (130-400); Potassium 3.8 mmol/L (3.5-5.1); Sodium 141 mmol/L (136-145); Total Protein 7.6 g/dL (6.4-8.2)
[2020-06-03 09:40] LABS: Poikilocytes 2+
[2020-06-03 09:41] LABS: Anisocytosis 1+; Polychromasia Present
[2020-06-03 09:55] LABS: Lipase 123 U/L (73-393)
[2020-06-03] MEDS: Normal Saline Flush 10 ML SYR IVP ×2 (10:00→11:36)
[2020-06-03] MEDS: Ketorolac 30 MG/ML VIAL IVP (10:00)
[2020-06-03] MEDS: diazePAM 10 MG/2 ML SYR 5 MG IVP (10:28)
[2020-06-03] MEDS: Omnipaque 350 MG/ML 100 ML BTL IJ (11:20)
--- NOTE | 2020-06-03 11:25 | DI.CT_ITS ---
EXAM: CT ABDOMEN PELVIS W CLINICAL HISTORY: Sudden onset right sided back-flank pain. TECHNIQUE: Imaging Protocol: Axial computed tomography images with coronal and sagittal reformatted images were created and reviewed CONTRAST MATERIAL: Intravenous: Omnipaque 350 Contrast volume:100 ml Oral: no COMPARISON: CT ABD PELVIS WITH CONTRAST from 12/12/2016 FINDINGS: ABDOMEN: Lung Bases: Normal where visualized. Liver: Normal density. No measurable mass. Gallbladder and biliary tract: No radiodense calculus or dilation. Pancreas: Normal density, no abnormal calcifications or inflammatory process. Spleen: Normal. Kidneys: Normal size, contour and axis. No obstructive uropathy. No masses seen. Punctate stone keira r the lower pole of the right kidney near an area of scarring. Symmetric perfusion. No perinephric collection. Adrenal glands: No masses seen. Abdominal Aorta: Abdominal portion non-dilated. PELVIS: Bladder: Symmetric distention, no gross wall thickening. Bowel: No obstruction or bowel wall thickening. Normal appendix. Normal quantity of stool. Peritoneal cavity: No ascites, collection or mesenteric inflammatory response. Bones: Within normal limits. Reproductive organs: Enlarged uterus with several fibroids. Lymph nodes: Unremarkable. Impression: Punctate non-obstructing stone at the lower pole of the right kidney and adjacent area of scarring. No acute abnormality is seen in the abdomen or pelvis. RADIATION DOSE DELIVERED: Total DLP DATA REPOSITORY: All CT scans at this facility are submitted to the National Radiology Data Registry (NRDR) Dose Index Registry (DIR) with the [employer] (A[employer]). RADIATION OPTIMIZATION: All CT scans at this facility use at least one of these dose optimization te chniques: automated exposure control; mA and/or kV adjustment per patient size (includes targeted exa ms where dose is matched to clinical indication); or iterative reconstruction.
[2020-06-03 11:33] VITALS: BP 136/78; PULSE 64; RESP 16; TEMP 36.3; O2SAT 100
[2020-06-03] MEDS: HYDROmorphone 2 MG/ML VIAL 1 MG IVP (12:20)
--- NOTE | 2020-06-03 12:22 | NUR.NOTE ---
Nursing Note: FAXED REFERRAL TO [facility] TO SEE YECENIA BY END OF THE WEEK AT [id number] 06/03/2020 KW
[2020-06-03 12:31] VITALS: BP 128/76; PULSE 63; RESP 18; TEMP 36.7; O2SAT 100
== END 2020-06-03 12:56 | disposition home or self-care (01) ==
PROVIDERS: Emergency Provider Physician Assistant
DX: N20.0 Calculus of kidney (principal); M54.5 Low back pain
CPT/HCPCS: 36415; 80053; 83690; 96361; 96374; 96375; 99285; 74177; 81003; 85025; 99284; J1885; J3360; J3490

== ENCOUNTER 2020-07-30 12:23 | Emergency (ER) | payer SELFPAY ==
[2020-07-30 12:29] VITALS: BP 127/76; PULSE 111; RESP 16; TEMP 37.2; O2SAT 100
--- NOTE | 2020-07-30 12:31 | ED.GENADUL_ITS ---
Discharge Plan Disposition Patient Disposition: HOME Condition: Stable Discharge Details Clinical Impression: Abdominal pain, Back pain Primary Care Provider: None,None ED Provider: Jacobo Oconnell Home Meds and New Rx's Prescriptions: New ondansetron HCl [Zofran] 4 mg tablet 4 mg PO Q8H PRNQty: 10 RF: 0 oxycodone-acetaminophen [Percocet] 5-325 mg tablet 1 tab PO Q8H PRNQty: 5 RF: 0 Continued ibuprofen 800 mg tablet 800 mg PO TID RF: 0 Discharge Instructions Instructions: Abdominal Pain (ED), Back Pain (ED) Additional Instructions: Work-up in the ER does not reveal any obvious emergent process. Zofran and Percocet as directed, Percocet may cause drowsiness and/or constipation. I have placed you on the care management list to help expedite outpatient primary care follow-up, they should be contacting you in the next 1-2 days. Please watch for new or worsening symptoms and return to the ER for any concerns. Stand Alone Forms: Work Release Medical Decision Making 44-year-old female presents complaining of 3-day history of lower abdominal pain bilaterally which is now across her entire lower back. Movement does make the pain worse and is associate with mild nausea. She denies recent illness or trauma. Denies fever, chest pain, vomiting, dysuria, hematuria, vaginal bleeding or discharge. She had a normal menstrual cycle 10 days ago, and per patient was normal. Although she complains of pain in both her abdomen and her back, reports the pain in her back is now worse. I am unable to elicit any discomfort through palpation. Patient does seem to increase with movement. Very well could be musculoskeletal in nature however certainly cannot rule out diagnoses such as UTI, pyelonephritis, renal stone, small bowel obstruction, etc. I would like to obtain IV access, give IV fluid, Zofran, obtain CBC, CMP, lipase, urinalysis and then reassess. Urinalysis is shows trace ketones but no signs of hematuria or infection. gambling monitor reveals a WBC of 13.03 hemoglobin 8.3 hematocrit 29.1. Creatinine 0.82 with a GFR greater than 60. Glucose 121. LFTs unremarkable. Setting of leukocytosis and abdominal pain will obtain CT imaging of abdomen and pelvis with contrast for further evaluation of her symptoms. In the meantime will 2 mg IV morphine. Patient reports some relief with the morphine but while at CT she reports increased pain with movement. I received a call from radiology regarding the CT abdomen and pelvis with contrast, no acute disease process noted. Patient heart rate down into the 80s. She appears more comfortable. Given 30 IV Toradol. Case and disposition discussed with Dr. Martinez. I will provide a short-term prescription for analgesia and nausea. Patient was placed on the care management team to help expedite outpatient care. Patient was given return precautions. Patient will be given a work note for her next 2 days of work. Upon discharge patient appears well, nontoxic. Again heart rate responded nicely to medications and fluid here in the ER. Patient has no additional questions or concerns and is comfortable with this plan. Medical Records Medical records reviewed: Yes I reviewed the patient's medical records. Lab Data Lab results reviewed: Yes I reviewed the patient's lab results. Lab results narrative: Laboratory Tests Range/Units 07/30/20 07/30/20 07/30/20 12:28 12:28 12:45 WBC (4.4-10.8) 10^3/uL RBC (3.93-5.22) 10^6/uL Hgb (11.2-15.7) g/dL Hct (36.0-46.0) % MCV (80-95) fL MCH (27.0-33.0) pg MCHC (32.0-36.0) % RDW (11.7-14.6) % Plt Count (130-400) 10^3/uL MPV (8.0-11.0) fL Immature Gran % Neutrophils % Lymphocytes % Monocytes % Eosinophils % Basophils % Nucleated RBC % % Absolute Neutrophils (1.2-6.7) 10^3/uL Absolute Lymphocytes (1.2-3.4) 10^3/uL Absolute Monocytes (0.1-0.8) 10^3/uL Absolute Eosinophils (0.0-0.7) 10^3/uL Absolute Basophils (0.0-0.2) 10^3/uL RBC Morphology Polychromasia Hypochromasia Poikilocytosis Anisocytosis Microcytosis Sodium (136-145) mmol/L 135 L Potassium (3.5-5.1) mmol/L 3.5 Chloride (98-107) mmol/L 101 Carbon Dioxide (21.0-32.0) mmol/L 22.2 Anion Gap (3-11) mmol/L 11.8 H BUN (7-18) mg/dL 12 Creatinine (0.55-1.02) mg/dL 0.82 Estimated GFR/1.73 m2 (mL/min/1.73m2) >= 60.00 Glucose (74-106) mg/dL 122 H Calcium (8.5-10.1) mg/dL 9.2 Total Bilirubin (0.2-1.0) mg/dL 0.5 AST (15-37) U/L 21 ALT (14-59) U/L 23 Alkaline Phosphatase (46-116) U/L 91 Total Protein (6.4-8.2) g/dL 8.1 Albumin (3.4-5.0) g/dL 4.0 Lipase (73-393) U/L 88 Urine Color (Yellow) Yellow Urine Clarity (Clear) Clear Urine pH (5-8) 5.5 Ur Specific [place] (1.005-1.025) >= 1.030 H Urine Protein (Negative) mg/dL Trace H Urine Ketones (Negative) mg/dL Trace H Urine Blood (Negative) Negative Urine Nitrite (Negative) Negative Urine Bilirubin (Negative) Negative Urine Urobilinogen (Up TO 0.2) EU/dL 0.2 Ur Leukocyte Esterase (Negative) Negative Urine RBC (0-2) HPF Negative Urine WBC (0-5) HPF 0-2 Ur Epithelial Cells (Negative) HPF Few Urine Crystals (Negative) HPF Negative Urine Bacteria (Negative) HPF Rare Urine Casts (Negative) LPF Negative Urine Mucus (Negative) Moderate Ur Culture Indicated? No Urine Glucose (Negative) mg/dL Negative Urine Opiates Screen (Negative) Negative Urine Methadone Screen (Negative) Negative Ur Barbiturates Screen (Negative) Negative Ur Tricyclics Screen (Negative) Negative Ur Amphetamines Screen (Negative) Negative U Benzodiazepines Scrn (Negative) Negative Urine Cocaine Screen (Negative) Negative Ur THC Screen (Negative) Positive A Range/Units 07/30/20 12:45 WBC (4.4-10.8) 10^3/uL 13.03 H RBC (3.93-5.22) 10^6/uL 4.26 Hgb (11.2-15.7) g/dL 8.3 L Hct (36.0-46.0) % 29.1 L MCV (80-95) fL 68.3 L MCH (27.0-33.0) pg 19.5 L MCHC (32.0-36.0) % 28.5 L RDW (11.7-14.6) % 18.2 H Plt Count (130-400) 10^3/uL 358 MPV (8.0-11.0) fL 9.3 Immature Gran % 0.4 Neutrophils % 91.5 Lymphocytes % 4.4 Monocytes % 3.3 Eosinophils % 0.2 Basophils % 0.2 Nucleated RBC % % 0 Absolute Neutrophils (1.2-6.7) 10^3/uL 11.92 H Absolute Lymphocytes (1.2-3.4) 10^3/uL 0.57 L Absolute Monocytes (0.1-0.8) 10^3/uL 0.43 Absolute Eosinophils (0.0-0.7) 10^3/uL 0.03 Absolute Basophils (0.0-0.2) 10^3/uL 0.03 RBC Morphology See below Polychromasia Present Hypochromasia 3+ Poikilocytosis 2+ Anisocytosis 1+ Microcytosis 3+ Sodium (136-145) mmol/L Potassium (3.5-5.1) mmol/L Chloride (98-107) mmol/L Carbon Dioxide (21.0-32.0) mmol/L Anion Gap (3-11) mmol/L BUN (7-18) mg/dL Creatinine (0.55-1.02) mg/dL Estimated GFR/1.73 m2 (mL/min/1.73m2) Glucose (74-106) mg/dL Calcium (8.5-10.1) mg/dL Total Bilirubin (0.2-1.0) mg/dL AST (15-37) U/L ALT (14-59) U/L Alkaline Phosphatase (46-116) U/L Total Protein (6.4-8.2) g/dL Albumin (3.4-5.0) g/dL Lipase (73-393) U/L Urine Color (Yellow) Urine Clarity (Clear) Urine pH (5-8) Ur Specific [place] (1.005-1.025) Urine Protein (Negative) mg/dL Urine Ketones (Negative) mg/dL Urine Blood (Negative) Urine Nitrite (Negative) Urine Bilirubin (Negative) Urine Urobilinogen (Up TO 0.2) EU/dL Ur Leukocyte Esterase (Negative) Urine RBC (0-2) HPF Urine WBC (0-5) HPF Ur Epithelial Cells (Negative) HPF Urine Crystals (Negative) HPF Urine Bacteria (Negative) HPF Urine Casts (Negative) LPF Urine Mucus (Negative) Ur Culture Indicated? Urine Glucose (Negative) mg/dL Urine Opiates Screen (Negative) Urine Methadone Screen (Negative) Ur Barbiturates Screen (Negative) Ur Tricyclics Screen (Negative) Ur Amphetamines Screen (Negative) U Benzodiazepines Scrn (Negative) Urine Cocaine Screen (Negative) Ur THC Screen (Negative) HPI General Mode of arrival: ambulatory . Date/Time Provider Initiated Documentation: 07/30/20 12:24 . Limitations to Documentation: no limitations . Information obtained by: patient . HPI Narrative: This is a 44-year-old female who denies significant past medical history or taking any current medications. She reports lower bilateral abdominal pain for the past 3 days, intermittent but becoming more persistent. Pain began as a mild but now is moderate and crampy in nature. Today she reports the pain began radiating across her entire lower back, worse with movement. She reports mild nausea but denies fever, chest pain, shortness of breath, cough, vomiting, dysuria, hematuria, vaginal bleeding or discharge, diarrhea or constipation. Patient denies recent illness or trauma. She states her last menstrual cycle was approximately 10 days ago and was normal at that time. No subsequent vaginal bleeding or discharge. She has not tried any medications for her symptoms. Nothing alleviates her symptoms. She states this feels very different than her previous visit when she was diagnosed with a kidney stone. Pain does not radiate down her legs. Denies any pelvic pain, black tarry stools or bright red blood in her stools. Related Data Home Medications Medication Instructions Recorded Confirmed ibuprofen 800 mg tablet 800 mg PO TID 02/22/19 07/30/20 ondansetron HCl [Zofran] 4 mg PO Q8H PRN #10 tab 07/30/20 oxycodone-acetaminophen [Percocet] 1 tab PO Q8H PRN #5 tab 07/30/20 Previous Rx's Medication Instructions Recorded ondansetron HCl [Zofran] 4 mg PO Q8H PRN #10 tab 07/30/20 oxycodone-acetaminophen [Percocet] 1 tab PO Q8H PRN #5 tab 07/30/20 Allergies Allergy/AdvReac Type Severity Reaction Status Date / Time codeine Allergy Unknown high fever Verified 07/30/20 12:34 General REECE: 3 Review of Systems Constitutional Constitutional: Denies fatigue and Denies fever(s) ENT Ears, Nose, Mouth, and Throat: Denies neck pain Cardiovascular Cardiovascular: Denies chest pain and Denies dyspnea Respiratory Respiratory: Denies cough and Denies dyspnea Gastrointestinal Gastrointestinal: Reports abdominal pain, Denies melena, Denies hematochezia, Denies constipation, Reports cramping, Denies diarrhea, Reports nausea and Denies vomiting Genitourinary Genitourinary: Denies abnormal vaginal bleeding and Denies dysuria Musculoskeletal Musculoskeletal: Reports back pain, Denies neck pain, Denies numbness and Denies tingling Integumentary/Breasts Skin/Breast: Denies rash Neurologic Neurologic: Denies numbness and Denies tingling Endocrine Endocrine: Denies fatigue [facility] Medical History (Updated 07/30/20 @ 14:44 by STEPHANIE Encarnacion) Back pain Knee cartilage, torn, right Surgical History H/O section History of bilateral tubal ligation History of knee surgery Right Hx of breast surgery R, clogged milk duct Hx of elbow surgery right Social History Smoking/Tobacco Use Status: Current every day Tobacco Type: cigarettes Tobacco: How many years used: 30 Quit status: has quit before Alcohol Intake: never Drug use: Occasionally Substance use type: does not use and marijuana Details: pt. denies surgical hardware Household members: spouse and family Housing: apartment Number of Children: 6 Education Level: 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 Exam Const General: cooperative, healthy appearing, comfortable and no acute distress Orientation: alert, awake and oriented x3 HENMT Head: normal to inspection, normocephalic and atraumatic Face and sinus: normal facial exam Mouth: moist mucous membranes Eyes Conjunctivae: conjunctivae normal Sclera: sclerae normal Neck Neck: normal visual inspection, full ROM, trachea midline and supple Resp Effort & Inspection: normal respiratory effort and able to speak in complete sentences Auscultation: clear to auscultation bilaterally Cardio Rate: regular rate Rhythm: regular rhythm GI Inspection: normal to inspection Palpation: soft, not firm, no guarding, not rigid and nontender Auscultation: normal bowel sounds Back/Spine/Pelvis Back: no CVA tenderness and No back tenderness Skin General skin exam: no rashes or lesions noted Neuro General: patient alert, patient awake, moves all extremities and no focal motor deficits Cognition: normal cognition Gait: antalgic Motor: muscle tone normal throughout Sensory Exam: no sensory deficits noted Extrem General: normal to inspection, full ROM, capillary refill normal, no pedal edema and no calf tenderness Psych Appearance: grossly normal Mental Status: mental status grossly normal
[2020-07-30 12:39] LABS: Bilirubin Negative (Negative); Blood Negative (Negative); Clarity Clear (Clear); Glucose Negative (Negative); Ketones Trace mg/dL (Negative); Leukocyte Esterase Negative (Negative); Nitrite Negative (Negative); Specific Gravity >= 1.030 (1.005-1.025); Urobilinogen 0.2 EU/dL (Up TO 0.2); pH 5.5 (5-8)
[2020-07-30] MEDS: Normal Saline 1,000 ML 1000 ML IV (12:45)
--- NOTE | 2020-07-30 12:45 | DI.CT_ITS ---
EXAM: CT ABDOMEN PELVIS W CLINICAL HISTORY: low abd pain x 3 days, now into back, low bilat TECHNIQUE: Imaging Protocol: Axial computed tomography images with coronal and sagittal reformatted images were created and reviewed CONTRAST MATERIAL: Intravenous: Omnipaque 350 Contrast volume:100 mL Oral: No COMPARISON: CT CT ABDOMEN PELVIS W from 06/03/2020 FINDINGS: ABDOMEN: Lung Bases: Normal where visualized. Liver: Normal density. No measurable mass. Portal, Superior Mesenteric, and Splenic Veins: Unremarkable. Gallbladder and Biliary Tract: No radiodense calculus or dilation. Pancreas: Normal density, no abnormal calcifications or inflammatory process. Spleen: Normal. Adrenals: No masses seen. Kidneys: Normal size, contour and axis. Nonobstructing 2 mm stone in the lower pole of the right kidn ey. No masses seen. Abdominal Aorta: Abdominal portion non-dilated. Bowel: No obstruction or bowel wall thickening. Appendix is unremarkable. Peritoneal Cavity: Trace amount of free fluid in the pelvis which may be physiologic. No abscess or pneumoperitoneum. Lymph Nodes: Within normal limits. Bones: Degenerative changes. No acute fracture or subluxation. Soft Tissues: Unremarkable. PELVIS: Bladder: Symmetric distention, no gross wall thickening. Reproductive Organs: Fibroid uterus. Lymph Nodes: Within normal limits. Bones: Please see above. IMPRESSION: No acute abdominal or pelvic process. Findings were discussed with the emergency department on the date of the examination. RADIATION DOSE DELIVERED: 904.49mGy.cm Total DLP DATA REPOSITORY: All CT scans at this facility are submitted to the National Radiology Data Registry (NRDR) Dose Index Registry (DIR) with the [place] [employer] (ACR). RADIATION OPTIMIZATION: All CT scans at this facility use at least one of these dose optimization te chniques: automated exposure control; mA and/or kV adjustment per patient size (includes targeted exa ms where dose is matched to clinical indication); or iterative reconstruction.
[2020-07-30 12:48] LABS: Bacteria Rare HPF (Negative); C & S Indicated? No; Casts Negative LPF (Negative); Crystals Negative HPF (Negative); Epithelial Cells Few HPF (Negative); Mucus Moderate (Negative); RBC Negative HPF (0-2); WBC 0-2 HPF (0-5)
[2020-07-30 12:51] LABS: Abs Immature Grans 0.05 10^3/uL (0.0-0.06); Absolute Basophil Count 0.03 10^3/uL (0.0-0.2); Absolute Eosinophil Count 0.03 10^3/uL (0.0-0.7); Absolute Lymphocyte Count 0.57 10^3/uL (1.2-3.4); Absolute Monocyte Count 0.43 10^3/uL (0.1-0.8); Absolute Neutrophil Count 11.92 10^3/uL (1.2-6.7); Basophils % 0.2; Eosinophils % 0.2; HCT 29.1 % (36.0-46.0); HGB 8.3 g/dL (11.2-15.7); Immature Grans % 0.4; Lymphocytes % 4.4; MCH 19.5 pg (27.0-33.0); MCHC 28.5 % (32.0-36.0); MCV 68.3 fL (80-95); MPV 9.3 fL (8.0-11.0); Monocytes % 3.3; Neutrophils % 91.5; Nucleated RBC 0 %; Platelet Count 358 10^3/uL (130-400); RBC 4.26 10^6/uL (3.93-5.22); RDW 18.2 % (11.7-14.6); WBC 13.03 10^3/uL (4.4-10.8)
[2020-07-30] MEDS: Ondansetron 4 MG/2 ML VIAL IVP (12:53)
[2020-07-30 13:05] LABS: Anisocytosis 1+; Diff Comment RBC Morph Reviewed
[2020-07-30 13:06] LABS: Hypochromasia 3+; Microcytosis 3+; Poikilocytes 2+; Polychromasia Present
[2020-07-30 13:12] LABS: ALT 23 U/L (14-59); AST 21 U/L (15-37); Alkaline Phosphatase 91 U/L (46-116); Anion Gap 11.8 mmol/L (3-11); BUN 12 mg/dL (7-18); Bilirubin, Total 0.5 mg/dL (0.2-1.0); CO2 22.2 mmol/L (21.0-32.0); CREATININE 0.82 mg/dL (0.55-1.02); Calcium 9.2 mg/dL (8.5-10.1); Chloride 101 mmol/L (98-107); Glucose 122 mg/dL (74-106); Lipase 88 U/L (73-393); Potassium 3.5 mmol/L (3.5-5.1); Sodium 135 mmol/L (136-145); Total Protein 8.1 g/dL (6.4-8.2)
[2020-07-30 13:26] LABS: *AMPHETAMINES SCREEN URINE Negative (Negative); *BARBITURATES SCREEN URINE Negative (Negative); *BENZODIAZEPINES SCREEN URINE Negative (Negative); Cannabinoids THC POSITIVE (Negative); Cocaine Screen,Urine Negative (Negative); METHADONE URINE SCREEN Negative (Negative); OPIATES URINE SCREEN Negative (Negative)
[2020-07-30 13:30] LABS: Tricyclic Antidepressants Negative (Negative)
--- NOTE | 2020-07-30 14:29 | NUR.NOTE ---
Nursing Note: Referral for PCP given to Care Management. Lizz Herron
[2020-07-30] MEDS: Ketorolac 30 MG/ML VIAL IVP (14:30)
[2020-07-30] MEDS: Omnipaque 350 MG/ML 100 ML BTL IJ (14:30)
[2020-07-30] MEDS: Normal Saline - Diluent 50 ML VIAL IV (14:31)
[2020-07-30] MEDS: Normal Saline Flush 10 ML SYR IVP ×2 (14:31→15:14)
[2020-07-30 15:11] VITALS: BP 112/56; PULSE 72; RESP 16; TEMP 37.2; O2SAT 100
== END 2020-07-30 15:19 | disposition home or self-care (01) ==
PROVIDERS: Emergency Provider Physician Assistant
DX: R10.30 Lower abdominal pain, unspecified (principal); M54.5 Low back pain; R11.0 Nausea
CPT/HCPCS: 36415; 80053; 80307; 81025; 83690; 96361; 96374; 96375; 99285; 74177; 81003; 81015; 85025; J1885; J2405; J3490

== ENCOUNTER 2021-02-07 14:49 | Emergency (ER) | payer SELFPAY ==
[2021-02-07 14:53] VITALS: BP 145/80; PULSE 102; RESP 16; TEMP 36.8; O2SAT 100
--- NOTE | 2021-02-07 15:38 | ED.GENADUL_ITS ---
Discharge Plan Disposition Patient Disposition: HOME Condition: Good Discharge Details Clinical Impression: Plantar fasciitis Primary Care Provider: None,None ED Provider: Tiesha Tolliver Home Meds and New Rx's Prescriptions: Continued ibuprofen 800 mg tablet 800 mg PO TID RF: 0 ondansetron HCl [Zofran] 4 mg tablet 4 mg PO Q8H PRNQty: 10 RF: 0 oxycodone-acetaminophen [Percocet] 5-325 mg tablet 1 tab PO Q8H PRNQty: 5 RF: 0 Discharge Instructions Instructions: Plantar Fasciitis (ED), Plantar Fasciitis Exercises (ED) Additional Instructions: Encourage rest, ice, elevation. Tylenol and/or ibuprofen as needed for discomfort. Please perform the exercises that are attached. You may continue to keep the area to help with discomfort. If you develop fever/chills, increased pain, altered sensation, redness or other new/worsening symptom please seek care urgently once again Attached is exercises that you should perform daily. Referral for physical therapy is also attached, please call Tuesday to schedule follow-up appointment. Please follow-up with your primary care in the next 1 to 2 weeks for reevaluation. Stand Alone Forms: Physical Therapy Referral Discharge Data Discharge Date/Time-TO BE ENTERED AT DEPARTURE: 02/07/21 16:03 Medical Decision Making Patient is a pleasant 45 year old female presneting today for evaluation of left heel pain of atraumatic onset. Denies numbness/tingling. States she has changed her shoes recnet which seemed to exacerbate this. On exam, patient indicates left heel and arch of the foot as area of pain. Pain increases iwth dorsiflexion, improves with plantar flexion. No evidence of trauma. Area of pain is most consistent with plantar fasciitis. No evidence of fracture at this time. No evidence of infection or neurovascular compromise. Patient and I discussed continued care. Will refer to PT. Advised taping and instructed on how to do so. Patient is wearing very soft shoes, advised more supportive foot wear. We discussed stretching/rolling. Exercises from [employer] given to patient. Return precautions were discussed. She will ctoninue with Tylenol/Ibuprofen. We discussed safe dosing of this. All of her questions and concerns were addressed, she is in agreement with this plan. Advised f/u with PCP in the next 1-2 wks for reevaluation. HPI General Mode of arrival: ambulatory . Date/Time Provider Initiated Documentation: 02/07/21 14:54 . Limitations to Documentation: no limitations . Information obtained by: patient and RN notes reviewed . History of Present Illness 45 year old F presents to the emergency department with the chief complaint of left heel pain, described as severe, Quality is described as aching, and is localized to the left and lower extremity. Patient reports no radiation. Patient started experiencing this week(s) (1.5) and it has been constant. Immobilization improves symptom(s), Movement worsens symptoms . Patient notes no other symptoms.. Patient did receive the following treatments prior to arrival, NSAID and other (APAP) Related Data Home Medications Medication Instructions Recorded Confirmed ibuprofen 800 mg tablet 800 mg PO TID 02/22/19 07/30/20 ondansetron HCl [Zofran] 4 mg PO Q8H PRN #10 tab 07/30/20 oxycodone-acetaminophen [Percocet] 1 tab PO Q8H PRN #5 tab 07/30/20 Previous Rx's Medication Instructions Recorded ondansetron HCl [Zofran] 4 mg PO Q8H PRN #10 tab 07/30/20 oxycodone-acetaminophen [Percocet] 1 tab PO Q8H PRN #5 tab 07/30/20 Allergies Allergy/AdvReac Type Severity Reaction Status Date / Time codeine Allergy Unknown high fever Verified 02/07/21 14:55 General Stated Complaint: Orthopedic REECE: 4 Review of Systems Constitutional Constitutional: Reports as per HPI, Denies chills, Denies fever(s), Denies headache(s) and Denies weakness ENT Ears, Nose, Mouth, and Throat: Denies headache(s) Cardiovascular Cardiovascular: Reports as per HPI Respiratory Respiratory: Reports as per HPI and Denies cough Musculoskeletal Musculoskeletal: Reports as per HPI and Denies tingling Integumentary/Breasts Skin/Breast: Reports as per HPI, Denies rash and Denies wounds Neurologic Neurologic: Reports as per HPI, Denies headache(s), Denies tingling, Denies paresthesias and Denies weakness PFSH Medical History (Updated 02/07/21 @ 15:57 by STEPHANIE Bar) Back pain Knee cartilage, torn, right Surgical History H/O section History of bilateral tubal ligation History of knee surgery Right Hx of breast surgery R, clogged milk duct Hx of elbow surgery right Social History Smoking/Tobacco Use Status: Current every day Tobacco Type: cigarettes Tobacco: How many years used: 30 Quit status: has quit before Smoking risk assessment performed?: Yes Alcohol Intake: never Drug use: Occasionally Substance use type: does not use and marijuana Household members: spouse and family Housing: apartment Number of Children: 6 Education Level: high school current occupation: [employer] Current gender identity: female 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 Exam Const General: cooperative, healthy appearing, comfortable, no acute distress, well developed and well groomed Nutritional Appearance: average body habitus and well nourished Orientation: alert and awake Resp Effort & Inspection: normal respiratory effort, able to speak in complete sentences and no respiratory distress Cardio Rate: regular rate Rhythm: regular rhythm Skin General skin exam: no rashes or lesions noted Lesions: no lesions Rashes: no rashes Trauma: no lacerations or abrasions Neuro General: patient alert and patient awake Cognition: normal cognition Speech: speech normal Gait: antalgic Motor: muscle tone normal throughout Sensory Exam: no sensory deficits noted Extrem Ankle/foot/toe images: 1. Area of discomfort. 2+ distal pulses, brisk capillary refill, sensation intact. No erythema, warmth, swelling, opening in the skin. No signs of trauma. Pain elicited with palpation along this area. No pain over proximal 5th metatarsal, No pain along dorsal aspect of foot. No pain with lateral squeeze of calcaneus. Pain maximal with dorsiflexion of the ankle. Psych Appearance: grossly normal and well kempt Mental Status: mental status grossly normal Speech and Movement: speech and movement normal Course Vital Signs Vital signs: Vital Signs Temperature 36.8 C 02/07/21 14:53 Pulse 102 H 02/07/21 14:53 Respiratory Rate 16 02/07/21 14:53 Blood Pressure 145/80 H 02/07/21 14:53 Pulse Oximetry 100 02/07/21 14:53 Temperature 36.8 C 02/07/21 14:53 Temperature Source Skin 02/07/21 14:53 Pulse 102 H 02/07/21 14:53 Respiratory Rate 16 02/07/21 14:53 Respiratory Effort 02/07/21 14:58 Blood Pressure 145/80 H 02/07/21 14:53 Blood Pressure Position Sitting 02/07/21 14:53 Pulse Oximetry 100 02/07/21 14:53 Pain Level 10 02/07/21 15:08
== END 2021-02-07 16:03 | disposition home or self-care (01) ==
PROVIDERS: Emergency Provider Physician Assistant
DX: M72.2 Plantar fascial fibromatosis (principal)
CPT/HCPCS: 99282; 99283

== ENCOUNTER 2021-08-31 16:30 | Outpatient (REF) | payer SELFPAY ==
[2021-09-02 14:31] LABS: COVID-19 RT-PCR UVMMC Result Negative (Negative)
== END 2021-08-31 16:31 | disposition home or self-care (01) ==
LOC: LBN 16:30
PROVIDERS: Visit Provider Physician Assistant Medical
DX: Z20.822 Contact with and (suspected) exposure to COVID-19 (principal); J06.9 Acute upper respiratory infection, unspecified
CPT/HCPCS: U0003

== ENCOUNTER 2023-09-16 09:16 | Emergency (ER) | payer SELFPAY ==
[2023-09-16 09:22] VITALS: BP 136/80; PULSE 80; RESP 20; O2SAT 98
--- NOTE | 2023-09-16 09:30 | DI.CT_ITS ---
Exam(s) CT ABDOMEN PELVIS WO EXAM: CT ABDOMEN PELVIS WO CLINICAL HISTORY: rlq pain, eval for appe and stone. TECHNIQUE: Imaging Protocol: Axial computed tomography images with coronal and sagittal reformatted images were created and reviewed. COMPARISON: CT CT ABDOMEN PELVIS W from 07/30/2020 FINDINGS: Lung Bases: Normal where visualized. Liver: Normal density. No measurable mass. Gallbladder and biliary tract: No radiodense calculus. No biliary ductal dilation. Pancreas: Normal density, no abnormal calcifications or inflammatory process. Spleen: Normal. Kidneys: Normal size, contour and axis.Tiny nonobstructing stone lower pole right kidney. No masses seen. Adrenal glands: No mass is seen. Lymph nodes: Within normal limits. Abdominal Aorta: Abdominal portion non-dilated. Bladder:No stone. No gross wall thickening. No evidence of mass. Bowel: No obstruction or bowel wall thickening. Appendix normal. Normal quantity of stool. Peritoneal cavity: No ascites, collection or mesenteric inflammatory response. Reproductive organs: Uterus enlarged. Posterior fibroid. Ovaries unremarkable. Bones: Unremarkable for age.. Soft Tissues: Within normal limits. IMPRESSION: No acute abnormality. Uterine fibroid. Nonobstructing stone lower pole right kidney. RADIATION DOSE DELIVERED: Total DLP Total DLP DATA REPOSITORY: All CT scans at this facility are submitted to the National Radiology Data Registry (NRDR) Dose Index Registry (DIR) with the [place] [employer] (ACR). RADIATION OPTIMIZATION: All CT scans at this facility use at least one of these dose optimization te chniques: automated exposure control; mA and/or kV adjustment per patient size (includes targeted exa ms where dose is matched to clinical indication); or iterative reconstruction.
--- NOTE | 2023-09-16 09:39 | ED.GENADUL_ITS ---
Discharge Plan Disposition Patient Disposition: Home Discharge Details Chief Complaint: Abd Prob Clinical Impression: Fibroid, Abdominal pain Primary Care Provider: Scarlet Ray ED Provider: Curt Felipe Home Meds and New Rx's Prescriptions: No Action No Known Home Meds Discharge Instructions Instructions: Abdominal Pain (ED) Additional Instructions: At this time there is no evidence of a kidney stone causing the pain. You do have some stones in the kidney, but these are nonobstructing and would not be causing pain thankfully at this time. There is no evidence of urinary tract infection or other significant abnormality. You do have evidence of uterine fibroid, which I suspect is the cause of your pain. Please continue to take Tylenol and Motrin. You can take 1000 mg of Tylenol every 6 hours and 800 mg of Motrin every 6 hours for pain. These are the maximum doses. Please take the pain pills only as needed for breakthrough pain. Please follow-up closely with your obstetrics blast furnace helper in [place] for reassessment. If you notice any worsening of your symptoms, or any new symptoms such as vomiting, diarrhea, fever, chills, shortness of breath, chest pain, numbness, weakness, or fainting , please return immediately to the emergency department for reevaluation. Please follow up with your primary care provider as soon as possible for reassessment and reevaluation. As always, it was a pleasure participating in your medical care today. Medical Decision Making 48-year-old female with a past medical history of previous kidney stone, tubal ligation, previous C-sections, presents today for evaluation of right abdominal pain. Patient states that last night she was driving when she developed sudden onset right flank pain. Over the last 24 hours it is transitioned around from her posterior right flank down towards the anterior right lower quadrant. Pain is constant, however it comes and goes in severity. During its peaks it is quite severe. She denies any numbness or tingling or weakness. She denies any falls or trauma. She denies any nausea vomiting or di arrhea. No blood in her urine, no vaginal discharge. She states that this feels different/atypical from her prior kidney stones. No fever or chills. No other complaints at this time. No other modifying factors. Exam demonstrates well-appearing female, no flank or CVA tenderness. Mild right lower quadrant tenderness. Differential is concerning for appendectomy, kidney stone, will treat with Toradol, Flomax, morphine, monitor closely and reassess. Will get CT scan UA. 11:[address] scan results have returned, there is evidence of a uterine fibroid. There is a nonobstructing stone in the lower pole of the right kidney. Patient's pain is significantly improved. Patient stable for discharge. Suspect that it is a uterine fibroid causing the pain. Patient feels stable going home. Will recommend follow-up with her obstetrics blast furnace helper Dr. Liang in [place]. Recommend continued NSAIDs at home. We will give a few pain pills for home use. Discussed red flags for which to return. Symptoms at this time on repeat exam showed no signs of an acute surgical abdomen. I have extensively reviewed the treatment plan and discharge instructions with the patient. I have addressed all patient concerns at this time. The patient was made aware of what symptoms to monitor for that would warrant a return to the emergency department. Discussed the plan with the patient, they demonstrate verbal understanding and agreement with our assessment and plan at this time. The documentation in this chart was dictated using [employer] dictation software. Please excuse any dictation errors. FINDINGS: Lung Bases: Normal where visualized. Liver: Normal density. No measurable mass. Gallbladder and biliary tract: No radiodense calculus. No biliary ductal dilation. Pancreas: Normal density, no abnormal calcifications or inflammatory process. Spleen: Normal. Kidneys: Normal size, contour and axis.Tiny nonobstructing stone lower pole right kidney. No masses seen. Adrenal glands: No mass is seen. Lymph nodes: Within normal limits. Abdominal Aorta: Abdominal portion non-dilated. Bladder:No stone. No gross wall thickening. No evidence of mass. Bowel: No obstruction or bowel wall thickening. Appendix normal. Normal quantity of stool. Peritoneal cavity: No ascites, collection or mesenteric inflammatory response. Reproductive organs: Uterus enlarged. Posterior fibroid. Ovaries unremarkable. Bones: Unremarkable for age.. Soft Tissues: Within normal limits. IMPRESSION: No acute abnormality. Uterine fibroid. Nonobstructing stone lower pole right kidney. HPI General Date/Time Provider Initiated Documentation: 09/16/23 09:26 . HPI Narrative: 48-year-old female with a past medical history of previous kidney stone, tubal ligation, previous C-sections, presents today for evaluation of right abdominal pain. Patient states that last night she was driving when she developed sudden onset right flank pain. Over the last 24 hours it is transitioned around from her posterior right flank down towards the anterior right lower quadrant. Pain is constant, however it comes and goes in severity. During its peaks it is quite severe. She denies any numbness or tingling or weakness. She denies any falls or trauma. She denies any nausea vomiting or diarrhea. No blood in her urine, no vaginal discharge. She states that this feels different/atypical from her prior kidney stones. No fever or chills. No other complaints at this time. No other modifying factors. Related Data Home Medications Medication Instructions Recorded Confirmed Unknown [No Known Home Meds] 06/24/22 09/16/23 Allergies Allergy/AdvReac Type Severity Reaction Status Date / Time codeine Allergy Unknown high fever Verified 01/14/23 10:36 General Stated Complaint: Abd Prob REECE: 3 Review of Systems All systems reviewed & are unremarkable except as noted in HPI and below PFSH All Active Problems (Updated 09/16/23 @ 11:09 by Curt Felipe DO) Abdominal pain (Acute) Fibroid (Acute) Bone spur of left foot (Acute) Plantar fasciitis (Acute) DJD of AC (acromioclavicular) joint (Acute) Pyelonephritis (Acute) Adnexal cyst (Acute) Right shoulder tendonitis (Acute) Corticosteroid injection: 02/22/19 Medical History Back pain Knee cartilage, torn, right Left ankle pain Surgical History H/O section History of bilateral tubal ligation History of knee surgery Right Hx of breast surgery R, clogged milk duct Hx of elbow surgery right Social History Smoking/Tobacco Use Status: Current every day Tobacco Type: cigarettes Tobacco: How many years used: 30 Quit status: has quit before Smoking risk assessment performed?: Yes Alcohol Intake: never Drug use: Daily Substance use type: does not use and marijuana Household members: spouse and family Housing: apartment Number of Children: 6 Education Level: 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 3.ENT: Atraumatic external nose and ears. Moist MM. Neck: Symmetric, trachea midline, No thyromegaly. 4.CVS: +S1/S2, No murmurs or gallops. Peripheral pulses 2+ and equal in all extremities. Brisk capillary refill in all extremities. 5.RESP: Unlabored respiratory effort. Clear to auscultation bilaterally. No wheezes rales or rhonchi 6.GI: Soft, mild right lower quadrant tenderness. No flank or CVA tenderness. 7.MSK: Normocephalic/Atraumatic, Extremities w/o deformity or ttp No cyanosis or clubbing, Normal movement of all extremities 8.Skin: Warm, Dry. No rashes or lesions. 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 Sensation grossly intact, no focal neurologic deficits. 10.Psych: (AAO) x3. Appropriate mood and affect Course Vital Signs Vital signs: Vital Signs Pulse 80 09/16/23 09:22 Respiratory Rate 20 09/16/23 09:22 Blood Pressure 136/80 09/16/23 09:22 Pulse Oximetry 98 09/16/23 09:22 Pulse 80 09/16/23 09:22 Respiratory Rate 20 09/16/23 09:22 Respiratory Effort Normal, Non-Labored 09/16/23 09:29 Blood Pressure 136/80 09/16/23 09:22 Blood Pressure Position Supine 09/16/23 09:22 Pulse Oximetry 98 09/16/23 09:22
[2023-09-16] MEDS: Normal Saline 1,000 ML 1000 ML IV (09:48)
[2023-09-16] MEDS: Ketorolac 15 MG/ML VIAL IVP (09:49)
[2023-09-16 09:50] LABS: Bilirubin Negative (Negative); Blood Negative (Negative); Clarity Clear (Clear); Glucose Negative (Negative); Ketones Negative (Negative); Leukocyte Esterase Negative (Negative); Nitrite Negative (Negative); Urobilinogen 0.2 mg/dL (Up to 0.2); pH 5.5 (5-8)
[2023-09-16] MEDS: Tamsulosin 0.4 MG CAPCR PO (09:52)
[2023-09-16 09:55] LABS: Abs Immature Grans 0.04 10^3/uL (0.0-0.06); Absolute Basophil Count 0.08 10^3/uL (0.0-0.2); Absolute Eosinophil Count 0.19 10^3/uL (0.0-0.7); Absolute Lymphocyte Count 1.68 10^3/uL (1.2-3.4); Absolute Monocyte Count 0.62 10^3/uL (0.1-0.8); Absolute Neutrophil Count 5.97 10^3/uL (1.2-6.7); Basophils % 0.9; Eosinophils % 2.2; HCT 28.5 % (36.0-46.0); HGB 7.9 g/dL (11.2-15.7); Immature Grans % 0.5; Lymphocytes % 19.6; MCH 18.2 pg (27.0-33.0); MCHC 27.7 % (32.0-36.0); MCV 66 fL (80-95); Monocytes % 7.2; Neutrophils % 69.6; Platelet Count 378 10^3/uL (130-400); RBC 4.34 10^6/uL (3.93-5.22); RDW 18.9 % (11.7-14.6); RDW-SD 44.5 fL; WBC 8.58 10^3/uL (4.4-10.8)
[2023-09-16 10:09] LABS: Diff Comment RBC Morph Reviewed; Hypochromasia 2+; Microcytosis 2+
[2023-09-16 10:10] LABS: ALT 22 U/L (14-59); AST 20 U/L (15-37); Albumin 3.7 g/dL (3.4-5.0); Alkaline Phosphatase 105 U/L (46-116); Anion Gap 9.4 mmol/L (3-11); BUN 9 mg/dL (7-18); Bilirubin, Total 0.3 mg/dL (0.2-1.0); CO2 23.6 mmol/L (21.0-32.0); CREATININE 0.7 mg/dL (0.55-1.02); Calcium 8.9 mg/dL (8.5-10.1); Chloride 104 mmol/L (98-107); Estimated GFR 107.95 (mL/min/1.73m2); Glucose 95 mg/dL (74-106); Potassium 3.6 mmol/L (3.5-5.1); Sodium 137 mmol/L (136-145); Total Protein 7.8 g/dL (6.4-8.2)
[2023-09-16 10:12] VITALS: BP 116/70; PULSE 56
[2023-09-16 10:16] VITALS: BP 123/50; PULSE 59
[2023-09-16 10:31] VITALS: BP 117/60; PULSE 58
[2023-09-16 10:46] VITALS: BP 116/67; PULSE 58
[2023-09-16] MEDS: Acetaminophen 500 MG TAB 1000 MG PO (11:06)
[2023-09-16 11:18] VITALS: BP 127/68; PULSE 69; RESP 20; O2SAT 100
== END 2023-09-16 11:27 | disposition home or self-care (01) ==
PROVIDERS: Emergency Provider Student in an Organized Health Care Education/Training Program; PCP Family Medicine
DX: R10.31 Right lower quadrant pain (principal); N20.0 Calculus of kidney; Z87.442 Personal history of urinary calculi; N85.2 Hypertrophy of uterus; D25.9 Leiomyoma of uterus, unspecified
CPT/HCPCS: 36415; 80053; 81025; 96361; 96374; 96375; 96376; 99284; 74176; 81003; 85025; J1885

== ENCOUNTER 2024-04-23 12:26 | Emergency (ER) | payer OTHER, SELFPAY ==
[2024-04-23 12:29] VITALS: BP 156/104; PULSE 82; RESP 16; TEMP 36.6; O2SAT 100
--- NOTE | 2024-04-23 12:36 | W.ED.GENAD ---
Discharge Plan Disposition Patient Disposition: Home Condition: Stable Discharge Details Chief Complaint: Orthopedic Clinical Impression: Contusion of left foot Primary Care Provider: Unknown,Unknown ED Provider: Artemio Hurley Home Meds and New Rx's Prescriptions: No Action No Known Home Meds Discharge Instructions Additional Instructions: Your x-ray did not show any broken bones Try to keep your foot elevated and you can use ice as needed You can take 1000 mg of acetaminophen and 600 mg of ibuprofen every 6 hours as needed If not better within a week follow-up with your primary care provider Stand Alone Forms: Work Release [facility] General Mode of arrival: ambulatory. Date/Time Provider Initiated Documentation: 04/23/24 12:28. Limitations to Documentation: no limitations. Information obtained by: patient. History of Present Illness 48 year old F presents to the emergency department with the chief complaint of left foot injury, described as moderate, Quality is described as aching, and is localized to the left and lower extremity. Patient started experiencing this hour(s) (5) and it has been constant. Rest improves symptom(s), Movement worsens symptoms . Patient notes no other symptoms.. Related Data Home Medications Medication Instructions Recorded Confirmed Unknown [No Known Home Meds] 06/24/22 04/23/24 Allergies Allergy/AdvReac Type Severity Reaction Status Date / Time codeine Allergy Unknown high fever Verified 01/14/23 10:36 General Stated Complaint: Orthopedic REECE: 4 Review of Systems All systems reviewed & are unremarkable except as noted in HPI and below Constitutional Constitutional: Denies chills, Denies fever(s) and Denies weakness Cardiovascular Cardiovascular: Denies chest pain and Denies dyspnea Respiratory Respiratory: Denies cough and Denies dyspnea Gastrointestinal Gastrointestinal: Denies abdominal pain, Denies nausea and Denies vomiting Neurologic Neurologic: Denies weakness Exam Const General: no acute distress Orientation: alert [facility] Head: normal to inspection Ears: external ears normal General nose exam: external nose normal Mouth: moist mucous membranes Eyes General: appearance normal, both eyes and all related structures Neck Neck: normal visual inspection Resp Effort & Inspection: normal respiratory effort and able to speak in complete sentences Cardio Rate: regular rate Skin General skin exam: no rashes or lesions noted Neuro General: patient alert and patient oriented x3 Extrem General: full ROM and capillary refill normal Psych Mental Status: mental status grossly normal Course Vital Signs Vital signs: Vital Signs Temperature 36.6 C 04/23/24 12:29 Pulse 82 04/23/24 12:29 Respiratory Rate 16 04/23/24 12:29 Blood Pressure 156/104 H 04/23/24 12:29 Pulse Oximetry 100 04/23/24 12:29 Temperature 36.6 C 04/23/24 12:29 Temperature Source Temporal Artery Scan 04/23/24 12:29 Pulse 82 04/23/24 12:29 Respiratory Rate 16 04/23/24 12:29 Blood Pressure 156/104 H 04/23/24 12:29 Blood Pressure Position Sitting 04/23/24 12:29 Pulse Oximetry 100 04/23/24 12:29 Oxygen Delivery Method Room Air 04/23/24 12:29 Oxygen Flow Rate 0 04/23/24 12:29 Medical Decision Making 48-year-old female was at work this morning when a heavy cart went over her left foot. She has pain in the left fifth and fourth toes. Denies any other injuries or pain. She has tenderness in the fifth and fourth toes, mild tenderness in the mid left metatarsal medially. Full range of motion of all the toes intact sensation and pulses and no pain in the ankle with full range of motion. Suspect contusions but will obtain x-rays to evaluate for fracture X-ray read as unremarkable by radiology, discussed even if she has a small fracture toe that he also had some. She says she has a walking boot from prior injury at home and declines hard soled postop shoe. Advised to follow-up with her PCP and return precautions given Differential Diagnosis Differential Diagnosis: contusion, fracture Imaging Data Radiologic Study: Attestation: I personally reviewed and interpreted this imaging study as follows: Imaging: X-Ray Radiologist's impression: No acute findings Quality:SDOH Health Related Social Needs: No Data to Display PFSH All Active Problems (Updated 04/23/24 @ 13:20 by Artemio Hurley MD) Contusion of left foot (Acute) Bone spur of left foot (Acute) Plantar fasciitis (Acute) DJD of AC (acromioclavicular) joint (Acute) Pyelonephritis (Acute) Adnexal cyst (Acute) Right shoulder tendonitis (Acute) Corticosteroid injection: 02/22/19 Medical History Back pain Knee cartilage, torn, right Left ankle pain Surgical History H/O section History of bilateral tubal ligation History of knee surgery Right Hx of breast surgery R, clogged milk duct Hx of elbow surgery right Social History Smoking/Tobacco Use Status: Current every day Tobacco Type: cigarettes Tobacco: How many years used: 30 Quit status: has quit before Smoking risk assessment performed?: Yes Alcohol Intake: never Drug use: Daily Substance use type: does not use and marijuana Household members: spouse and family Housing: apartment Number of Children: 6 Education Level: 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
[2024-04-23] MEDS: Ibuprofen 600 MG TAB PO (12:43)
--- NOTE | 2024-04-23 13:00 | DI.RAD_ITS ---
Exam(s) XR FOOT LT COMPLETE EXAM: XR FOOT LT COMPLETE CLINICAL HISTORY: pain s/p heavy object going over foot. TECHNIQUE: 2D digital imaging was performed. Three views. COMPARISON: CR LEFT FOOT COMPLETE from 08/26/2017 FINDINGS: BONES: No acute fracture is present. No bony destructive lesion is seen. Prominent plantar calcanea l spur. JOINTS: No dislocation present. SOFT TISSUE: Normal. IMPRESSION: No acute abnormality. DATA REPOSITORY: RADIATION DOSE DELIVERED:
== END 2024-04-23 13:23 | disposition home or self-care (01) ==
PROVIDERS: Emergency Provider Emergency Medicine
DX: S90.32XA Contusion of left foot, initial encounter (principal); F17.210 Nicotine dependence, cigarettes, uncomplicated; V94.89XA Other water transport accident, initial encounter; Y93.89 Activity, other specified
CPT/HCPCS: 99283; 73630

== ENCOUNTER 2024-07-29 06:42 | Emergency (ER) | payer SELFPAY ==
[2024-07-29 07:05] VITALS: BP 174/139; PULSE 78; RESP 14; TEMP 36.6; O2SAT 98
[2024-07-29 07:08] VITALS: BP 174/139; PULSE 78; RESP 14; TEMP 36.6; O2SAT 98
[2024-07-29 07:30] VITALS: BP 120/79; PULSE 71; RESP 14; O2SAT 98
--- NOTE | 2024-07-29 07:31 | W.ED.GENAD ---
Discharge Plan Disposition Patient Disposition: Home Condition: Stable Discharge Details Clinical Impression: Acute sore throat, Acute herpangina Primary Care Provider: Unknown,Unknown ED Provider: Sarkis Agosto Home Meds and New Rx's Prescriptions: New amoxicillin 500 mg tablet 500 mg PO BID 7 Days Qty: 14 0RF Discharge Instructions Instructions: Sore throat in adults, Hand, foot, and mouth disease and herpangina Additional Instructions: rapid strep testing today is negative but a confirmatory culture has been sent based on your symptoms and high community prevalence of strep currently, will start antibiotics your exam does look similar to HAND FOOT MOUTH infection or HERPANGINA, which is caused by a virus. So the antibiotic may not be helpful. monitor for other signs of rash or lesions, especially on hands, around rectum or on feet. take motrin and tyelnol for pain. drink lots of liquids you can mix equal parts of BENADRYL + MAALOX and gargle this solution. it can help with pain HPI General Date/Time Provider Initiated Documentation: 07/29/24 07:24. Limitations to Documentation: no limitations. Information obtained by: patient. HPI Narrative: 48-year-old female with past medical history of tobacco abuse presents for evaluation of sore throat. Reports onset of symptoms 4 days ago, but they significantly worsened last night. Not associated with fever. Has had some mild nasal congestion, no cough. Pain worse with talking and swallowing. Has tried some Motrin and Tylenol for relief without significant improvement. Related Data Home Medications ?Medication ?Instructions ?Recorded ?Confirmed amoxicillin 500 mg tablet 500 mg PO BID 7 days #14 tabs 07/29/24 Previous Rx's ?Medication ?Instructions ?Recorded amoxicillin 500 mg tablet 500 mg PO BID 7 days #14 tabs 07/29/24 Allergies Allergy/AdvReac Type Severity Reaction Status Date / Time codeine Allergy Unknown high fever Verified 07/29/24 07:08 General Stated Complaint: Sorethroat REECE: 4 Exam Narrative Exam Narrative: Review of Systems: All systems reviewed & are unremarkable except as noted in HPI and below Well-developed, no acute distress NCAT PERRL, normal conjunctiva posterior oropharynx with multiple shallow ulcerative lesions noted on bilateral tonsils, soft palate and uvula, increased erythema noted shoddy cervical adenopathy no significant voice change, no trismus RRR Unlabored respiratory effort No rashes or lesions. Course Vital Signs Vital signs: Vital Signs Temperature 36.6 C 07/29/24 07:05 Pulse 78 07/29/24 07:05 Respiratory Rate 14 07/29/24 07:05 Blood Pressure 174/139 H 07/29/24 07:05 Pulse Oximetry 98 07/29/24 07:05 Temperature 36.6 C 07/29/24 07:08 Temperature Source Oral 07/29/24 07:08 Pulse 71 07/29/24 07:30 Respiratory Rate 14 07/29/24 07:30 Respiratory Effort Normal, Non-Labored 07/29/24 07:30 Respiratory Depth Normal 07/29/24 07:30 Respiratory Pattern Normal 07/29/24 07:30 Blood Pressure 120/79 07/29/24 07:30 Blood Pressure Mean 92 07/29/24 07:30 Blood Pressure Position Sitting 07/29/24 07:30 Pulse Oximetry 98 07/29/24 07:30 Oxygen Delivery Method Room Air 07/29/24 07:30 Oxygen Flow Rate 0 07/29/24 07:30 Pain Level 7 07/29/24 07:08 Lab/Test Results Lab/Test Results: 07/29/24 07:16 Tonsil - Not Specified Group A Streptococcus Culture - Pending POC Strep Test-ANGELI(Rapid) Start: 07/29/24 07:23 Freq: .Rapid Strep Test Status: Active Protocol: Document 07/29/24 07:24 N[facility] (Rec: 07/29/24 07:24 N.[facility] [id number]) Strep test-ANGELI(Rapid)-POC POC-Strep test-ANGELI (Rapid) Negative POC-Strep test-ANGELI (Rapid) Negative Medical Decision Making Emergent evaluation of sore throat. Initial differential includes strep pharyngitis, viral pharyngitis, herpangina, HFM. Patient has not had fever. Rapid strep testing is negative. Given the abundance of ulcerative lesions I have a higher suspicion for herpangina, but there is a high incidence of strep in the community currently. given this, strep culture sent and will start empiric abx treatment. have advised this may not be helpful and she should follow closely with PCP for re-evaluation. Quality:SDOH Health Related Social Needs: No Data to Display PFSH All Active Problems Acute herpangina (Acute) Acute sore throat (Acute) Bone spur of left foot (Acute) Plantar fasciitis (Acute) DJD of AC (acromioclavicular) joint (Acute) Pyelonephritis (Acute) Adnexal cyst (Acute) Right shoulder tendonitis (Acute) Corticosteroid injection: 02/22/19 Medical History Left ankle pain Back pain Knee cartilage, torn, right Surgical History Hx of breast surgery R, clogged milk duct History of knee surgery Right H/O section History of bilateral tubal ligation Hx of elbow surgery right Social History Smoking/Tobacco Use Status: Current every day Tobacco Type: cigarettes Tobacco: How many years used: 30 Quit status: has quit before Smoking risk assessment performed?: Yes Alcohol Intake: never Drug use: Daily Substance use type: does not use and marijuana Household members: spouse and family Housing: apartment Number of Children: 6 Education Level: 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
== END 2024-07-29 07:39 | disposition home or self-care (01) ==
PROVIDERS: Emergency Provider Emergency Medicine
DX: B08.5 Enteroviral vesicular pharyngitis; F17.210 Nicotine dependence, cigarettes, uncomplicated
CPT/HCPCS: 87880; 99283; 87081

== ENCOUNTER 2024-08-02 12:12 | Emergency (ER) | payer SELFPAY ==
[2024-08-02 12:30] VITALS: BP 119/80; PULSE 70; RESP 18; TEMP 36.8; O2SAT 98
[2024-08-02 13:25] VITALS: BP 115/75; PULSE 65; RESP 20; TEMP 37.1; O2SAT 98
--- NOTE | 2024-08-02 13:46 | ED.GENADUL_ITS ---
Discharge Plan Disposition Patient Disposition: Home Condition: Improving Discharge Details Chief Complaint: Recheck Clinical Impression: Pharyngitis Primary Care Provider: Unknown,Unknown ED Provider: Mahamed Grewal Home Meds and New Rx's Prescriptions: No Action amoxicillin 500 mg tablet 500 mg PO BID 7 Days Qty: 14 0RF Discharge Instructions Instructions: Viral Pharyngitis Additional Instructions: Please follow-up with your primary care physician. Return to the emergency department for any worsening symptoms HPI General Date/Time Provider Initiated Documentation: 08/02/24 13:39 . HPI Narrative: 48-year-old female presents with persistent sore throat over the last several days, negative [id number] strep, negative strep culture, was treated empirically anyway given symptomatology and exudate on tonsils, persistent sore throat. No nausea no vomiting no abdominal pain no fevers no chills no respiratory distress Related Data Home Medications ?Medication ?Instructions ?Recorded ?Confirmed amoxicillin 500 mg tablet 500 mg PO BID 7 days #14 tabs 07/29/24 Previous Rx's ?Medication ?Instructions ?Recorded amoxicillin 500 mg tablet 500 mg PO BID 7 days #14 tabs 07/29/24 Allergies Allergy/AdvReac Type Severity Reaction Status Date / Time codeine Allergy Unknown high fever Verified 07/29/24 07:08 General Stated Complaint: Recheck REECE: 4 Exam Narrative Exam Narrative: Resting comfortably no acute distress Moist mucous membranes tongue secretions Normal voice no stridor Shallow-based mucosal ulcerations to posterior oropharynx, no exudate, midline uvula, no tonsillar exudate, no submental submandibular or sublingual induration No erythema to the neck Speaking full sentences no respiratory stress no tachypnea no cyanosis Course Vital Signs Vital signs: Vital Signs Temperature 36.8 C 08/02/24 12:30 Pulse 70 08/02/24 12:30 Respiratory Rate 18 08/02/24 12:30 Blood Pressure 119/80 08/02/24 12:30 Pulse Oximetry 98 08/02/24 12:30 Temperature 37.1 C 08/02/24 13:25 Temperature Source Temporal Artery Scan 08/02/24 13:25 Pulse 65 08/02/24 13:25 Pulse Rhythm Regular 08/02/24 13:25 Pulse Strength Normal 08/02/24 13:25 Respiratory Rate 20 08/02/24 13:25 Respiratory Effort Normal 08/02/24 13:25 Respiratory Depth Normal 08/02/24 13:25 Respiratory Pattern Normal 08/02/24 13:25 Blood Pressure 115/75 08/02/24 13:25 Blood Pressure Mean 88 08/02/24 13:25 Blood Pressure Position Sitting 08/02/24 13:25 Pulse Oximetry 98 08/02/24 13:25 Oxygen Delivery Method Room Air 08/02/24 13:25 Oxygen Flow Rate 0 08/02/24 13:25 Pain Level 5 08/02/24 13:25 Medical Decision Making 48-year-old female presents with persistent pharyngitis, negative strep swab negative strep culture, treat empirically has 2-3 more days of antibiotics left, scattered shallow-based ulcerations to oropharyngeal mucosa, midline uvula no tonsillar erythema, no evidence of deep space infection of head or neck, consider resolving viral enanthem, will provide symptomatic treatment with dexamethasone and Cepacol lozenge, patient tolerating secretions normal voice no stridor no respiratory symptoms no hypoxia no tachypnea. Given home care instructions and strict return precautions. Quality:SDOH Health Related Social Needs: No Data to Display PFSH All Active Problems (Updated 08/02/24 @ 13:49 by Mahamed Grewal MD) Pharyngitis (Acute) Acute herpangina (Acute) Acute sore throat (Acute) Bone spur of left foot (Acute) Plantar fasciitis (Acute) DJD of AC (acromioclavicular) joint (Acute) Pyelonephritis (Acute) Adnexal cyst (Acute) Right shoulder tendonitis (Acute) Corticosteroid injection: 02/22/19 Medical History Left ankle pain Back pain Knee cartilage, torn, right Surgical History Hx of breast surgery R, clogged milk duct History of knee surgery Right H/O section History of bilateral tubal ligation Hx of elbow surgery right Social History Smoking/Tobacco Use Status: Current every day Tobacco Type: cigarettes Tobacco: How many years used: 30 Quit status: has quit before Smoking risk assessment performed?: Yes Alcohol Intake: never Drug use: Daily Substance use type: does not use and marijuana Household members: spouse and family Housing: apartment Number of Children: 6 Education Level: 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
[2024-08-02] MEDS: Benzocaine/Menthol LOZG 15/BOX 1 EACH SUC (13:53)
[2024-08-02] MEDS: Dexamethasone 10 MG/ML VIAL PO (13:53)
== END 2024-08-02 13:56 | disposition home or self-care (01) ==
PROVIDERS: Emergency Provider Emergency Medicine
DX: J02.9 Acute pharyngitis, unspecified (principal); R05.1 Acute cough
CPT/HCPCS: 99283; J1100

== ENCOUNTER 2024-09-20 13:21 | Outpatient (CLI) | payer SELFPAY ==
--- NOTE | 2024-09-20 12:17 | DI.RAD_ITS ---
Exam(s) XR FOOT LT COMPLETE EXAM: XR FOOT LT COMPLETE CLINICAL HISTORY: pain and limited ROM M72.2 PLANTAR FASCIAL FIBROMATOSIS M77.52. TECHNIQUE: 2D digital imaging was performed. Three views. COMPARISON: CR XR FOOT LT COMPLETE from 04/23/2024 FINDINGS: BONES: No acute fracture is present. No bony destructive lesion is seen. Plantar calcaneal spur. JOINTS: No dislocation present. No significant degenerative changes. SOFT TISSUE: Normal. No soft tissue calcifications. IMPRESSION: Plantar calcaneal spur. DATA REPOSITORY: RADIATION DOSE DELIVERED:
== END 2024-09-20 13:41 ==
LOC: DI 13:22
PROVIDERS: Visit Provider Nurse Practitioner Family
DX: M72.2 Plantar fascial fibromatosis (principal); M77.52 Other enthesopathy of left foot and ankle
CPT/HCPCS: 73630

== ENCOUNTER 2024-09-28 07:29 | Emergency (ER) | payer SELFPAY ==
[2024-09-28 07:35] VITALS: BP 132/86; PULSE 76; RESP 18; TEMP 36.8; O2SAT 99
--- NOTE | 2024-09-28 07:48 | W.ED.GENAD ---
Discharge Plan Disposition Patient Disposition: Against Medical Advice Discharge Details Clinical Impression: Dental abscess Primary Care Provider: None,None ED Provider: Aldair Santana Home Meds and New Rx's Prescriptions: New penicillin V potassium 500 mg tablet 500 mg PO QID Qty: 55 0RF Continued ibuprofen 800 mg tablet 800 mg PO TID Qty: 42 0RF Discharge Instructions Instructions: Leaving Against Medical Advice, Tooth Abscess ED, Quitting Smoking ED Additional Instructions: It was recommended that you have incision and drainage of dental abscess. You have declined this recommendation. Please take full course of antibiotic as prescribed. Please follow-up with your dentist as soon as possible. Return to the emergency department at any time for further diagnostic workup and treatment as recommended. HPI General Mode of arrival: ambulatory. Date/Time Provider Initiated Documentation: 09/28/24 07:39. Limitations to Documentation: no limitations. Information obtained by: patient. HPI Narrative: 49-year-old female presents with chief complaint of facial swelling. Patient notes chronic dental fracture left upper incisor that has been infected in the past. She notes last night she had a slight ache in her tooth and then developed swelling at the gumline and woke up with mild left facial swelling today. Patient denies associated fever. Patient here requesting antibiotics, specifically penicillin which has worked in the past. She does have follow-up with dentist in 2 weeks scheduled. Related Data Home Medications ?Medication ?Instructions ?Recorded ?Confirmed ibuprofen 800 mg tablet 800 mg PO TID #42 tabs 09/21/24 09/28/24 penicillin V potassium 500 mg 500 mg PO QID #55 tabs 09/28/24 tablet Previous Rx's ?Medication ?Instructions ?Recorded ibuprofen 800 mg tablet 800 mg PO TID #42 tabs 09/21/24 penicillin V potassium 500 mg 500 mg PO QID #55 tabs 09/28/24 tablet Allergies Allergy/AdvReac Type Severity Reaction Status Date / Time codeine Allergy Unknown high fever Verified 09/28/24 07:37 General Stated Complaint: DentalOral REECE: 4 Review of Systems All systems reviewed & are unremarkable except as noted in HPI and below Constitutional Constitutional: Denies fever(s) ENT Ears, Nose, Mouth, and Throat: Reports as per HPI Exam Const General: cooperative and comfortable Orientation: alert and awake [facility] General nose exam: external nose normal Face and sinus: other (mild swlling left maxilla) Mouth: lip normal, tongue normal and no trismus Teeth and gingiva: poor dentition and other (chronic fracture tooth 10 with palpable tender fluctuance at gumline) Throat: posterior oropharynx normal Course Vital Signs Vital signs: Vital Signs Temperature 36.8 C 09/28/24 07:35 Pulse 76 09/28/24 07:35 Respiratory Rate 18 09/28/24 07:35 Blood Pressure 132/86 09/28/24 07:35 Pulse Oximetry 99 09/28/24 07:35 Temperature 36.8 C 09/28/24 07:35 Temperature Source Oral 09/28/24 07:35 Pulse 76 09/28/24 07:35 Respiratory Rate 18 09/28/24 07:35 Respiratory Effort Normal, Non-Labored 09/28/24 07:38 Blood Pressure 132/86 09/28/24 07:35 Blood Pressure Position Sitting 09/28/24 07:35 Pulse Oximetry 99 09/28/24 07:35 Oxygen Delivery Method Room Air 09/28/24 07:35 Oxygen Flow Rate 0 09/28/24 07:35 Pain Level 4 09/28/24 07:35 Medical Decision Making 49-year-old female smoker here with facial swelling, palpable tender swelling at base of tooth #10 with chronic dental fracture. Suspect dental abscess. I recommended incision and drainage and patient provided informed refusal and wishes to leave against advice. She is agreeable to treatment with penicillin which she understands is suboptimal. I had a discussion with the patient about my diagnostic/treatment plan. Patient declines plan and wishes to leave against medical advise. I reiterated my concerns to the patient and explained the risks of leaving prior to completion of workup and treatment. I specifically emphasized the possibility of life-threatening or lifestyle modifying disease that would not be appropriately treated if they leave. Patient verbalized understanding of my concerns and the potential for life threatening or lifestyle modifying disease. Patient has capacity to make informed decision. I again explained my concerns and urged the patient to stay for treatment as outlined. Patient continued to refuse. I then discussed potential less ideal alternatives to diagnostic/treatment plan as outlines and patient refused. I recommended that the patient follow-up with primary care physician and her dentist ЕЛЕНА or return to the Emergency Department at any time for further treatment. I did speak with the patient on smoking cessation and provided counseling. Quality:SDOH Health Related Social Needs: No Data to Display PFSH All Active Problems Dental abscess (Acute) Bone spur of left foot (Acute) Plantar fasciitis (Acute) DJD of AC (acromioclavicular) joint (Acute) Pyelonephritis (Acute) Adnexal cyst (Acute) Right shoulder tendonitis (Acute) Corticosteroid injection: 02/22/19 Medical History Left ankle pain Back pain Knee cartilage, torn, right Surgical History Hx of breast surgery R, clogged milk duct History of knee surgery Right H/O section History of bilateral tubal ligation Hx of elbow surgery right Social History Smoking/Tobacco Use Status: Current every day Tobacco Type: cigarettes Tobacco: How many years used: 30 Quit status: has quit before Smoking risk assessment performed?: Yes Alcohol Intake: never Drug use: Occasionally Substance use type: marijuana Household members: spouse and family Housing: apartment Number of Children: 6 Education Level: 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
[2024-09-28] MEDS: Penicillin V POTASSIUM 500 MG TAB PO (07:58)
== END 2024-09-28 08:01 | disposition left against medical advice (07) ==
PROVIDERS: Emergency Provider Student in an Organized Health Care Education/Training Program
DX: R68.84 Jaw pain (principal); K04.7 Periapical abscess without sinus; Z53.29 Procedure and treatment not carried out because of patient's decision for other reasons; F17.200 Nicotine dependence, unspecified, uncomplicated
CPT/HCPCS: 99283

== ENCOUNTER 2025-01-04 09:48 | Emergency (ER) | payer SELFPAY ==
[2025-01-04 09:51] VITALS: BP 152/85; PULSE 64; TEMP 36.7; O2SAT 99
--- NOTE | 2025-01-04 10:09 | W.ED.GENAD ---
Discharge Plan Disposition Patient Disposition: Home Condition: Good Discharge Details Clinical Impression: Dental infection Primary Care Provider: None,None ED Provider: Curt Felipe Home Meds and New Rx's Prescriptions: New amoxicillin 500 mg capsule 500 mg PO TID 10 Days Qty: 30 0RF Discharge Instructions Instructions: Dental Pain ED Additional Instructions: at this time you do have a dental infection. Please take 800 mg of ibuprofen every 6 hours and 1000 mg of Tylenol every 6 hours to help with the inflammation and pain. These are the maximum doses. Please take the antibiotic as directed to help with the infection in your tooth. Please use the dental list that we have provided to contact the dentist for prompt follow-up and evaluation for tooth removal. If you notice any worsening of your symptoms, or any new symptoms such as difficulty swallowing, difficulty breathing, vomiting, diarrhea, fever, chills, shortness of breath, chest pain, numbness, weakness, or fainting , please return immediately to the emergency department for reevaluation. Please follow up with your primary care provider as soon as possible for reassessment and reevaluation. As always, it was a pleasure participating in your medical care today. Referrals: Martinez Scott [Emergency Nurse] - [facility] General Date/Time Provider Initiated Documentation: 01/04/25 10:07. HPI Narrative: 49-year-old female with no significant past medical history except for poor dental health presents today for evaluation of right lower dental pain. Patient states that within the last 48 hours one of her right lower teeth chipped. She did place a jgfw-rei-zskttfv manufacturer agent on it. Since then she has had the pains in the right lower area. She has been taking Tylenol and Motrin. She is contacted a dentist but has not gotten an appointment yet. She denies any fever or chills. No difficulty swallowing or drinking. No other complaints at this time. Related Data Home Medications ?Medication ?Instructions ?Recorded ?Confirmed amoxicillin 500 mg capsule 500 mg PO TID 10 days #30 caps 01/04/25 Previous Rx's ?Medication ?Instructions ?Recorded amoxicillin 500 mg capsule 500 mg PO TID 10 days #30 caps 01/04/25 Allergies Allergy/AdvReac Type Severity Reaction Status Date / Time codeine Allergy Unknown high fever Verified 01/04/25 09:53 General Stated Complaint: DentalOral REECE: 4 Exam Narrative Exam Narrative: 1.Const: Well-nourished, Well-developed, appearing stated age 2.Eyes: PERRL, no conjunctival injection, and symmetrical lids. 3.ENT: Atraumatic external nose and ears. Moist MM. Neck: Symmetric, trachea midline, No thyromegaly. Multiple dental caries throughout. Minimal periapical swelling in the right lower dental space around tooth 28. No large abscess capable of drainage. No evidence of Ludewig's angina, no evidence of swelling in the posterior oropharynx. 4.CVS: +S1/S2, Peripheral pulses 2+ and equal in all extremities. Brisk capillary refill in all extremities. 5.RESP: Unlabored respiratory effort. Clear to auscultation bilaterally. No wheezes rales or rhonchi 6.GI: Soft, Nontender/Nondistended, No hepatosplenomegaly. No guarding or rebound. 7.MSK: Normocephalic/Atraumatic, Extremities w/o deformity or ttp No cyanosis or clubbing, Normal movement of all extremities 8.Skin: Warm, Dry. No rashes or lesions. 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 Sensation grossly intact, no focal neurologic deficits. 10.Psych: (AAO) x3. Appropriate mood and affect Course Vital Signs Vital signs: Vital Signs Temperature 36.7 C 01/04/25 09:51 Pulse 64 01/04/25 09:51 Blood Pressure 152/85 H 01/04/25 09:51 Pulse Oximetry 99 01/04/25 09:51 Temperature 36.7 C 01/04/25 09:51 Pulse 64 01/04/25 09:51 Blood Pressure 152/85 H 01/04/25 09:51 Pulse Oximetry 99 01/04/25 09:51 Medical Decision Making 49-year-old female with no significant past medical history except for poor dental health presents today for evaluation of right lower dental pain. Patient states that within the last 48 hours one of her right lower teeth chipped. She did place a hwac-dye-bumotmh manufacturer agent on it. Since then she has had the pains in the right lower area. She has been taking Tylenol and Motrin. She is contacted a dentist but has not gotten an appointment yet. She denies any fever or chills. No difficulty swallowing or drinking. No other complaints at this time. Exam demonstrates a well-appearing female, notable dental caries throughout, minimal swelling in the periapical space around tooth 28, no evidence of Ludewig's angina, mass, oropharyngeal airway compromise or other significant abnormalities. Patient has declined dental block. No ability to lyse periapical abscess at this time. Will start the patient on Augmentin. Will give a gram here, and a prescription for 500 3 times daily for home. Patient will follow-up closely with dentist. Recommend continued NSAID therapy. Discussed red flags which to return. No evidence of life-threatening orally etiology at this stage. I have extensively reviewed the treatment plan and discharge instructions with the patient. I have addressed all patient concerns at this time. The patient was made aware of what symptoms to monitor for that would warrant a return to the emergency department. Discussed the plan with the patient, they demonstrate verbal understanding and agreement with our assessment and plan at this time. The documentation in this chart was dictated using [employer] dictation software. Please excuse any dictation errors. Quality:SDOH Health Related Social Needs: No Data to Display PFSH All Active Problems (Updated 01/04/25 @ 10:09 by Curt Felipe DO) Dental infection (Acute) Bone spur of left foot (Acute) Plantar fasciitis (Acute) DJD of AC (acromioclavicular) joint (Acute) Pyelonephritis (Acute) Adnexal cyst (Acute) Right shoulder tendonitis (Acute) Corticosteroid injection: 02/22/19 Medical History Left ankle pain Back pain Knee cartilage, torn, right Surgical History Hx of breast surgery R, clogged milk duct History of knee surgery Right H/O section History of bilateral tubal ligation Hx of elbow surgery right Social History Smoking/Tobacco Use Status: Current every day Tobacco Type: cigarettes Tobacco: How many years used: 30 Quit status: has quit before Smoking risk assessment performed?: Yes Alcohol Intake: never Drug use: Occasionally Substance use type: marijuana Household members: spouse and family Housing: apartment Number of Children: 6 Education Level: high school current occupation: [employer] Current gender identity: female 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
[2025-01-04] MEDS: Penicillin V POTASSIUM 500 MG TAB, 4 TABS/BTL PO (10:34)
[2025-01-04 19:06] VITALS: BP 152/85; PULSE 64; TEMP 36.7; O2SAT 99
== END 2025-01-04 19:06 | disposition home or self-care (01) ==
LOC: ER 10:38
PROVIDERS: Emergency Provider Student in an Organized Health Care Education/Training Program
DX: K04.7 Periapical abscess without sinus (principal)
CPT/HCPCS: 99283

== ENCOUNTER 2025-05-05 10:26 | Emergency (ER) | payer SELFPAY ==
[2025-05-05 10:29] VITALS: BP 153/104; PULSE 70; RESP 18; TEMP 36.4; O2SAT 98
--- NOTE | 2025-05-05 10:43 | DI.RAD_ITS ---
Exam(s) XR RIBS RT PA CHEST 3V CLINICAL HISTORY: struck in chest with roller coaster bar. COMPARISON: CR XR PORTABLE CHEST AP from 01/25/2020 TECHNIQUE:: PA view of the chest and 2 views of the right ribs were performed. FINDINGS: The 10th through 12th right ribs are not well penetrated. LUNGS:Clear. No pleural abnormality seen. HEART: Normal size. MEDIASTINUM: Normal. BONES: No displaced rib fracture is seen. No bony destructive lesion is seen. IMPRESSION: 1. No displaced rib fracture. 2. No acute pulmonary findings.
--- NOTE | 2025-05-05 10:44 | W.ED.GENAD ---
Discharge Plan Disposition Patient Disposition: Home Condition: Stable Discharge Details Clinical Impression: Bruised ribs Primary Care Provider: None,None ED Provider: Gloria Sood Home Meds and New Rx's Prescriptions: No Action No Known Home Meds Discharge Instructions Instructions: Bruised Rib (DC) Additional Instructions: You were seen in the emergency department today for evaluation of rib pain that you sustained on a roller coaster. In our department had a full physical examination performed, received medications for pain management and had an x-ray that did not show any broken ribs or problems with the lungs underneath your ribs. It is safe for you to go home, but I recommend that you continue to use ice, and purchase qdxd-dvh-[id number] lidocaine patches, 4%, to use in the area of most pain. Please use therapeutic dosing of Tylenol (acetaminophen) & Advil (ibuprofen) in an alternating fashion as follows: Take 1000mg of Tylenol every 6 hours without missing doses- that is 4 times per day. Group Home in between the Tylenol doses, take 600mg of Advil also on a 6 hour schedule, that is also 4 times per day. With this strategy, you will be taking something for fever/pain as often as every 3 hours. The daily maximum dosing of Tylenol is 4000mg, and the daily maximum dosing of Advil is 2400mg. Please note that some common cold medications & prescription pain medications may contain acetaminophen and you need to read OTC drug labels and factor that in to maximum daily doses. It is important that you open up your lungs to prevent pneumonia or infection. Do this by splinting the area of most pain with a pillow, and allow yourself to do a strong cough. You should also be doing your incentive spirometer at least 3 times per day, several times in a row. Your goal is 1500 mL on the machine. Please follow-up with your primary care provider in the next few days to discuss this visit and any symptoms that change, worsen, or persist. Thank you for allowing us to be part of your care. Stand Alone Forms: Work Release HPI General Mode of arrival: ambulatory. Date/Time Provider Initiated Documentation: 05/05/25 10:35. Limitations to Documentation: no limitations. Information obtained by: patient and old records reviewed. HPI Narrative: This is a 49-year-old female patient without significant past medical history who is presenting for evaluation of right rib injuries. Yesterday afternoon the patient was riding on a roller coaster, which stopped short and she was propelled forward, striking her right anterior ribs against the restraint bar. She reports that she immediately had some pain, which is worse with movement and lifting her right arm, deep breath and palpation. She took some Tylenol and ibuprofen last night and presented today due to ongoing symptoms. She reports that she has not noted any skin changes, did not injure any other part of her body and has not had abdominal pain. She has otherwise been in her normal state of health. She reports an allergy to codeine. Related Data Home Medications ?Medication ?Instructions ?Recorded ?Confirmed Unknown [No Known Home Meds] 05/01/25 05/05/25 Allergies Allergy/AdvReac Type Severity Reaction Status Date / Time codeine Allergy Unknown high fever Verified 05/05/25 10:42 General Stated Complaint: Chest/Rib REECE: 4 Exam Narrative Exam Narrative: Gen: Awake and alert, in no apparent distress HEENT: Non-icteric sclera Neck: Supple Lungs: No apparent respiratory distress, normal respiratory effort though the patient prefers shallow breaths. Lung sounds clear and equal bilaterally CV: Appears well perfused, strong distal pulses. The patient's chest wall is tender over the anterior costal margin over to the mid axillary line, no crepitus, deformity, or overlying skin changes. Abdomen: Non-distended, soft, no tenderness to palpation of the abdomen, no rigidity, rebound, or guarding MSK: Moves 4 extremities without apparent limitation in ROM Skin: Visualized skin without rashes, cyanosis. Neuro: Normal Gait, no obvious focal deficits or facial asymmetry. Speaks in full, clear sentences. Psych: Appropriate for situation. Course Vital Signs Vital signs: Vital Signs Temperature 36.4 C L 05/05/25 10:29 Pulse 70 05/05/25 10:29 Respiratory Rate 18 05/05/25 10:29 Blood Pressure 153/104 H 05/05/25 10:29 Pulse Oximetry 98 05/05/25 10:29 Temperature 36.4 C L 05/05/25 10:29 Temperature Source Oral 05/05/25 10:29 Pulse 70 05/05/25 10:29 Respiratory Rate 18 05/05/25 10:29 Respiratory Effort Normal 05/05/25 10:37 Respiratory Depth Normal 05/05/25 10:37 Respiratory Pattern Normal 05/05/25 10:37 Blood Pressure 153/104 H 05/05/25 10:29 Blood Pressure Position Standing 05/05/25 10:29 Pulse Oximetry 98 05/05/25 10:29 Oxygen Delivery Method Room Air 05/05/25 10:29 Oxygen Flow Rate 0 05/05/25 10:29 Pain Level 9 05/05/25 10:37 Medical Decision Making This is a 49-year-old female patient presenting for evaluation of rib injury. My differential includes but is not limited to rib fracture, rib contusion, certainly considered underlying pulmonary abnormalities including pulmonary contusion, pneumothorax. The brief duration of time since the injury and the lack of fever does reassure me against interval development of pneumonia. She has no abdominal discomfort or hemodynamic instability to suggest abdominal organ injury such as liver or spleen lac. I will provide the patient with Tylenol, ibuprofen, and a Lidoderm patch. Will obtain x-ray imaging of the affected ribs. - I independently reviewed the patient's x-ray imaging, which shows no fractures, pulmonary contusions, pneumothorax or other abnormalities. I am most concerned for bruising of the ribs. The patient was able to pull 1000 mL reliably on incentive spirometry and I counseled her on pulmonary hygiene and multimodal pain management. She was provided with a short course of oxycodone to supplement her Tylenol, ibuprofen, and Lidoderm patches. I also placed a referral to establish with primary care. At this time, the patient has had a full medical evaluation and is safe for discharge to home. They are hemodynamically stable, ambulatory, and tolerating PO. They are understanding of the follow-up plan and return precautions. They left our facility without incident. Gloria Sood MD [facility] All Active Problems (Updated 05/05/25 @ 11:52 by Gloria Sood MD) Bruised ribs (Acute) Bone spur of left foot (Acute) Plantar fasciitis (Acute) DJD of AC (acromioclavicular) joint (Acute) Pyelonephritis (Acute) Adnexal cyst (Acute) Right shoulder tendonitis (Acute) Corticosteroid injection: 02/22/19 Medical History Left ankle pain Back pain Knee cartilage, torn, right Surgical History Hx of breast surgery R, clogged milk duct History of knee surgery Right H/O section History of bilateral tubal ligation Hx of elbow surgery right Social History Smoking/Tobacco Use Status: Current every day Tobacco Type: cigarettes Tobacco: How many years used: 30 Quit status: has quit before Smoking risk assessment performed?: Yes Alcohol Intake: never Drug use: Occasionally Substance use type: marijuana Household members: spouse and family Housing: apartment Number of Children: 6 Education Level: high school current occupation: [employer] Current gender identity: female 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
[2025-05-05] MEDS: Ibuprofen 600 MG TAB PO (10:48)
[2025-05-05] MEDS: Acetaminophen 500 MG TAB 1000 MG PO (10:48)
[2025-05-05] MEDS: Lidocaine 5% Patch 1 PATCH TP (10:48)
--- NOTE | 2025-05-05 11:25 | DI.VRAD_ITS ---
PROCEDURE INFORMATION: Exam: XR Chest Exam date and time: 05/05/2025 10:52 AM Age: 49 years old Clinical indication: Other: Struck in chest with roller coaster bar TECHNIQUE: Imaging protocol: Radiologic exam of the chest. Views: 1 view. COMPARISON: CR XR PORTABLE CHEST AP 01/25/2020 9:32 AM FINDINGS: Lungs: Unremarkable. No consolidation. Pleural spaces: Unremarkable. No pleural effusion. No pneumothorax. Heart/Mediastinum: Unremarkable. No cardiomegaly. Bones/joints: Unremarkable. IMPRESSION: No acute findings. Dictated and Authenticated by: Louise Dodge MD. Orderin St. Bassem Castro MD
[2025-05-05 12:38] VITALS: BP 119/61; PULSE 71; RESP 20; TEMP 36.6; O2SAT 99
== END 2025-05-05 12:41 | disposition home or self-care (01) ==
PROVIDERS: Emergency Provider Emergency Medicine
DX: S20.211A Contusion of right front wall of thorax, initial encounter (principal); X58.XXXA Exposure to other specified factors, initial encounter; Y93.I1 Activity, roller coaster riding
CPT/HCPCS: 99283 ×2; 71046; 71100

== ENCOUNTER 2025-06-06 01:58 | Outpatient (CLI) | payer OTHER, SELFPAY ==
--- NOTE | 2025-06-06 07:30 | DI.RAD_ITS ---
Exam(s) XR FOOT LT COMPLETE EXAM: XR FOOT LT COMPLETE CLINICAL HISTORY: Left foot pain, M79.672. TECHNIQUE: 2D digital imaging was performed. Three views. COMPARISON: No exams were available for comparison FINDINGS: BONES: No acute fracture is present. No bony destructive lesion is seen. Prominent plantar calcaneal spur. JOINTS: No dislocation present. No significant degenerative changes peer SOFT TISSUE: Normal. IMPRESSION: Plantar calcaneal spur. DATA REPOSITORY: RADIATION DOSE DELIVERED:
== END 2025-06-06 02:18 ==
PROVIDERS: Visit Provider Podiatrist
DX: M79.672 Pain in left foot (principal); M77.32 Calcaneal spur, left foot
CPT/HCPCS: 73630